=== PATIENT | female | born 1995 | race Caucasian/White ===

== ENCOUNTER 2017-01-20 12:50 | Inpatient (IN) | payer BC ==
[~2017-01-20] VITALS: Ht 180.3 cm; Wt 85.5 kg
[2017-01-20 13:46] LABS: BASO % 0.1 %; BASO ABS # 0.01 K/uL (0-0.2); COMPLETE YES; EOS % 1.6 %; HEMATOCRIT 40.8 % (37-47); IG% 0.1 %; LYMPH % 29.7 %; LYMPH ABS # 2.27 K/uL (1.2-3.4); MEAN CELL VOLUME 85.2 fL (80-100); MEAN CORPUSCULAR HEMOGLOBIN 29.4 pg (25-34); MEAN CORPUSCULAR HGB CONC 34.6 g/dl (32-36); MONO % 6.8 %; NEUT % 61.7 %; PLATELET COUNT 206 K/uL (130-400); RED BLOOD COUNT 4.79 M/uL (4.2-5.4); WHITE BLOOD COUNT 7.64 K/uL (4.8-10.8)
[2017-01-20 14:05] LABS: BUN/CREATININE RATIO 13.7 (10-20); CALCIUM 9.2 mg/dl (8.5-10.1); CREATININE 1.15 mg/dl (0.60-1.20); POTASSIUM 3.3 mmol/L (3.5-5.1)
[2017-01-20] MEDS ORDERED: GABA-113 PO (14:06)
[2017-01-20] MEDS ORDERED: ARIP30TA3 PO (14:06)
[2017-01-20] MEDS ORDERED: LTHSR/300 PO (14:06)
[2017-01-20] MEDS ORDERED: BUPRTAB51 PO (14:06)
[2017-01-20] MEDS ORDERED: CLON2TAB3 PO (14:06)
[2017-01-20] MEDS ORDERED: LISD60CA PO (14:06)
[2017-01-20] MEDS ORDERED: DESV100T PO (14:06)
[2017-01-20] MEDS ORDERED: LAMO200T38 PO (14:06)
[2017-01-20] MEDS ORDERED: ALPR2TAB2 PO (14:06)
[2017-01-20] MEDS ORDERED: APPL300T3 PO (14:08)
[2017-01-20] MEDS ORDERED: BIOT10TA2 PO (14:08)
[2017-01-20] MEDS ORDERED: OMEG10007 PO (14:08)
[2017-01-20] MEDS ORDERED: CHOLTAB11 PO (14:08)
[2017-01-20 14:15] LABS: THYROID STIMULATING HORMONE 1.36 uIu/ml (0.300-4.500)
[2017-01-20 14:30] LABS: URINE APPEARANCE CLEAR (CLEAR); URINE BILIRUBIN NEG (NEG); URINE COLOR YELLOW; URINE NITRITE NEG (NEG); URINE SPECIFIC GRAVITY 1.013 (1.000-1.030); UROBILINOGEN NEG (NEG)
[2017-01-20 14:35] LABS: MANUAL MICROSCOPIC REQUIRED? NO; REVIEW REQ? NO
[2017-01-20 14:46] LABS: BENZODIAZEPINE, URINE POS (NEG); COCAINE,URINE NEG (NEG); PHENCYCLIDINE, URINE NEG (NEG)
[2017-01-20] MEDS ORDERED: LORAZEPAM 0.5 MG TAB PO STA (14:48)
[2017-01-20] MEDS ORDERED: LORAZEPAM 0.5 MG TAB ONE (14:50)
--- NOTE | 2017-01-20 14:59 | EMERGENCY ROOM VISIT NOTE ---
History Report prepared by Romana: Cheli Ramirez Under the Supervision of: Dr. Ed Sutton D.O. First contact with patient: 12:59 Chief Complaint: MENTAL HEALTH EVALUATION Stated Complaint: DEPRESSION, ANXIETY, INSOMNIA, SEVERE ADHD History of Present Illness The patient is a 21 year old female who presents to the Emergency Room for a mental health evaluation. The patient has a history of depression and ADHD. She takes medications but thinks that they are not working anymore. She was doing well until about 2 weeks ago. She has started experiencing "manic episodes." The patient states that for the past month she has increased her ADHD medications because she felt that they were not strong enough. She had been having trouble concentrating and increased to 60 mg of Vyvanse. She also has insomnia and has been taking 2mg of Xanax and 4 mg of Klonopin to help her sleep. She states that this is not working. She is only sleeping about 2-3 hours a night and having panic attacks at night. The patient is going to class exhausted and unable to focus. She reports racing thoughts. She had two difficult exams this week. She states that over the weekend she became very overwhelmed and tried to kill herself. She tried to jump off of a building on campus. She states that she "chickened out" at the last minute. The patient denies any current SI. She has been having intermittent headache for the past 2 weeks. She rates her pain as a 9/10 in severity. Pt denies weakness or numbness. She is currently on her menses. She was sent to the ED by [facility] for further evaluation. Source of History: patient Onset: 2 weeks ago Position: other (mental health) Symptom Intensity: 9/10 Quality: other ("manic") Timing: worsening Associated Symptoms: + headache, No weakness, No numbness Note: Pt denies current SI. Review of Systems See HPI for pertinent positives & negatives. A total of 10 systems reviewed and were otherwise negative. Past Medical & Surgical Medical Problems: (1) Concussion (2) Depression Surgical Problems: (1) H/O rhinoplasty Family History FH: cancer FH: gallbladder disease Hypertension Social History Smoking Status: Never Smoker Smokeless Tobacco Use: No Alcohol Use: none Drug Use: none Marital Status: single Housing Status: lives with roommate Occupation Status: [employer] student Current/Historical Medications Scheduled Apple Cider Vinegar (Apple Cider Vinegar), 300 MG PO QPM Aripiprazole (Abilify), 30 MG PO DAILY Biotin (Biotin), 10 MG PO DAILY Bupropion (Wellbutrin-Xl), 300 MG PO DAILY Cholecalciferol (D-5000), 5,000 UNITS PO TID Clonazepam (Klonopin), 2 MG PO HS Desvenlafaxine Succinate Er (Pristiq), 200 MG PO QAM Fish Oil ([place]-3), 3 CAP PO DAILY Gabapentin (Neurontin), 900 MG PO TID Lamotrigine (Lamictal), 200 MG PO QPM Lisdexamfetamine Dimesylate (Vyvanse), 1 CAP PO DAILY Sully Carbonate (Sully Carbonate), 900 MG PO QPM Miscellaneous Medications Alprazolam (Xanax), 2 MG PO Allergies Coded Allergies: No Known Allergies (Unverified , 01/20/17) Physical Exam Vital Signs Date Time Temp Pulse Resp B/P (MAP) Pulse Ox O2 Delivery O2 Flow Rate FiO2 01/20/17 16:15 76 16 119/65 98 Room Air 01/20/17 14:21 82 16 113/65 99 Room Air 01/20/17 12:56 37.0 96 18 126/81 100 Room Air Physical Exam GENERAL: alert, sitting up in bed, well appearing, well nourished, no distress, non-toxic EYE EXAM: normal conjunctiva OROPHARYNX: no exudate, no erythema, lips, buccal mucosa, and tongue normal and mucous membranes are moist NECK: supple, no nuchal rigidity, no adenopathy, non-tender LUNGS: Clear to auscultation. Normal chest wall mechanics HEART: no murmurs, S1 normal and S2 normal ABDOMEN: abdomen soft, non-tender, normo-active bowel sounds, no masses, no rebound or guarding. BACK: Back is symmetrical on inspection and there is no deformity, no midline tenderness, no CVA tenderness. SKIN: no rashes and no bruising UPPER EXTREMITIES: upper extremities are grossly normal. LOWER EXTREMITIES: No pitting edema. NEURO EXAM: Normal sensorium, cranial nerves II-XII grossly intact, normal speech, no gross weakness of arms, no gross weakness of legs. PSYCH: Flat affect, depressed, denies SI, admits to recent attempt. Medical Decision & Procedures Laboratory Results 01/20/17 13:30 Red Blood Count 4.79, Mean Corpuscular Volume 85.2, Mean Corpuscular Hemoglobin 29.4, Mean Corpuscular Hemoglobin Concent 34.6, Mean Platelet Volume 9.0, Neutrophils (%) (Auto) 61.7, Lymphocytes (%) (Auto) 29.7, Monocytes (%) (Auto) 6.8, Eosinophils (%) (Auto) 1.6, Basophils (%) (Auto) 0.1, Neutrophils # (Auto) 4.71, Lymphocytes # (Auto) 2.27, Monocytes # (Auto) 0.52, Eosinophils # (Auto) 0.12, Basophils # (Auto) 0.01 01/20/17 13:30 Test 01/20/17 00:00 01/20/17 13:30 01/20/17 13:31 Urine Color YELLOW Urine Appearance CLEAR (CLEAR) Urine pH 8.0 (4.5-7.5) Urine Specific [place] 1.013 (1.000-1.030) Urine Protein NEG (NEG) Urine Glucose (UA) NEG (NEG) Urine Ketones NEG (NEG) Urine Occult Blood 2+ (NEG) Urine Nitrite NEG (NEG) Urine Bilirubin NEG (NEG) Urine Urobilinogen NEG (NEG) Urine Leukocyte Esterase TRACE (NEG) Urine WBC (Auto) 0 /hpf (0-5) Urine RBC (Auto) 0-4 /hpf (0-4) Urine Hyaline Casts (Auto) 0 /lpf (0-5) Urine Epithelial Cells (Auto) 5-10 /lpf (0-5) Urine Bacteria (Auto) NEG (NEG) Urine Opiates Screen NEG (NEG) Urine Methadone, Qualitative NEG (NEG) Urine Barbiturates NEG (NEG) Urine Phencyclidine (PCP) Level NEG (NEG) Ur Amphetamine/Methamphetamine NEG (NEG) MDMA (Ecstasy) Screen NEG (NEG) Urine Benzodiazepines Screen POS (NEG) Urine Cocaine Metabolite NEG (NEG) Urine Marijuana (THC) NEG (NEG) White Blood Count 7.64 K/uL (4.8-10.8) Red Blood Count 4.79 M/uL (4.2-5.4) Hemoglobin 14.1 g/dL (12.0-16.0) Hematocrit 40.8 % (37-47) Mean Corpuscular Volume 85.2 fL (80-100) Mean Corpuscular Hemoglobin 29.4 pg (25-34) Mean Corpuscular Hemoglobin Concent 34.6 g/dl (32-36) Platelet Count 206 K/uL (130-400) Mean Platelet Volume 9.0 fL (7.4-10.4) Neutrophils (%) (Auto) 61.7 % Lymphocytes (%) (Auto) 29.7 % Monocytes (%) (Auto) 6.8 % Eosinophils (%) (Auto) 1.6 % Basophils (%) (Auto) 0.1 % Neutrophils # (Auto) 4.71 K/uL (1.4-6.5) Lymphocytes # (Auto) 2.27 K/uL (1.2-3.4) Monocytes # (Auto) 0.52 K/uL (0.11-0.59) Eosinophils # (Auto) 0.12 K/uL (0-0.5) Basophils # (Auto) 0.01 K/uL (0-0.2) RDW Standard Deviation 38.5 fL (36.4-46.3) RDW Coefficient of Variation 12.5 % (11.5-14.5) Immature Granulocyte % (Auto) 0.1 % Immature Granulocyte # (Auto) 0.01 K/uL (0.00-0.02) Anion Gap 6.0 mmol/L (3-11) Est Creatinine Clear Calc Drug Dose 94.0 ml/min Estimated GFR () 78.2 Estimated GFR (Non- 67.5 BUN/Creatinine Ratio 13.7 (10-20) Calcium Level 9.2 mg/dl (8.5-10.1) Total Bilirubin 0.5 mg/dl (0.2-1) Direct Bilirubin 0.1 mg/dl (0-0.2) Aspartate Amino Transf (AST/SGOT) 21 U/L (15-37) Alanine Aminotransferase (ALT/SGPT) 40 U/L (12-78) Alkaline Phosphatase 91 U/L (45-117) Total Protein 7.6 gm/dl (6.4-8.2) Albumin 4.2 gm/dl (3.4-5.0) Thyroid Stimulating Hormone (TSH) 1.360 uIu/ml (0.300-4.500) Human Chorionic Gonadotropin, Qual NEG (NEG) Ethyl Alcohol mg/dL < 3.0 mg/dl (0-3) Bedside Glucose 99 mg/dl (70-90) Medications Administered Medications (Trade) Dose Ordered Sig/Amy Route Start Time Stop Time Status Last Admin Dose Admin Lorazepam (Ativan Tab) 0.5 mg NOW STAT PO 01/20/17 14:48 01/20/17 14:49 DC 01/20/17 14:48 0.5 MG ED Course ED COURSE: Vital signs were reviewed and showed normal vitals. The patients medical record was reviewed The above diagnostic studies were performed and reviewed. ED treatments and interventions as stated above. 1259: The patient was evaluated in room A5. A complete history and physical examination was performed. 1448: Lorazepam 0.5 mg PO 1600: The patient was accepted to [facility] for further management. Medical Decision Differential diagnosis: Etiologies such as mood disorder, infection, hypoglycemia, electrolyte abnormalities, cardiac sources, intracerebral event, toxicologic, neurologic, as well as others were entertained. Patient is a 21-year-old female who presents to ER for feeling manic and depressed. She states that she is not sleeping and has racing thoughts. She did attempt to kill herself several days ago. Patient notes her medications are not helping. She did try to increase them without success. CBC all BMP, LFTs, bilirubin and TSH was unremarkable. was negative. Alcohol negative. Sully was 0.6. UA was negative. Patient was evaluated by 3 S. and admitted for severe depression. Medication Reconcilliation Current Medication List: was personally reviewed by me Blood Pressure Screening Patient's blood pressure: Normal blood pressure Impression Primary Impression: Mood disorder Additional Impression: Suicide attempt Scribe Attestation The scribe's documentation has been prepared under my direction and personally reviewed by me in its entirety. I confirm that the note above accurately reflects all work, treatment, procedures, and medical decision making performed by me. Departure Information Dispostion [facility] Acute Care Patient Instructions My [facility] Problem Qualifiers
[2017-01-20 16:15] VITALS: O2SAT 98
[2017-01-20] MEDS ORDERED: LISD30CA4 PO (16:26)
[2017-01-20] MEDS ORDERED: SODIUM CHLORIDE 0.65% NA SOLN 45 ML (OCEAN) PRN (16:30)
[2017-01-20] MEDS ORDERED: ACETAMINOPHEN 325 MG TAB PO PRN (16:30)
[2017-01-20] MEDS ORDERED: ALUMINUM/MAGNESIUM SUSP 30 ML UDC PO PRN (16:30)
[2017-01-20] MEDS ORDERED: BISMUTH SUBSALICYLATE PER ML OMNICELL CHARGE PO PRN (16:30)
[2017-01-20] MEDS ORDERED: MAGNESIUM HYDROXIDE SUSP 30 ML UDC PO PRN (16:30)
[2017-01-20 16:52] LABS: PREG INTERNAL NEGATIVE QC NEG CLEAR BACKGROUND; PREG INTERNAL POSITIVE QC POS CONTROL LINE
[2017-01-20] MEDS: hydrOXYzine HCL 25 MG TAB PO PRN ×3 (18:30→23:38)
[2017-01-20 19:42] VITALS: BP 114/72; PULSE 97; TEMP 36.8; Ht 180.3 cm; Wt 85.5 kg
[2017-01-20] MEDS ORDERED: LITHIUM CARBONATE SR 300 MG TAB (LITHOBID) PO SCH (21:00)
[2017-01-20] MEDS: CLONAZEPAM 1 MG TAB PO SCH (21:49)
[2017-01-20] MEDS: GABAPENTIN 300 MG CAP PO SCH (21:51)
[2017-01-21 07:03] VITALS: BP_SYST 94; BP_SYST 97; BP_DIAS 57; BP_DIAS 60; PULSE 67; PULSE 85; TEMP 36.9
[2017-01-21] MEDS: BuPROPion XL 300 MG TABCR PO SCH (09:48)
[2017-01-21] MEDS: ARIPIprazole TAB 15 MG TAB PO SCH (09:48)
[2017-01-21] MEDS: GABAPENTIN 300 MG CAP PO SCH ×3 (09:48→21:27)
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
--- NOTE | 2017-01-21 15:51 | Medical Student: BHU Only ---
Psychiatric Evaluation Date of Service: Jan 21, 2017. IDENTIFYING DATA: Elsa Lockett is a 21-year-old female [employer] [facility] Student who was admitted to the [facility] yesterday following presentation to the ED to have her meds increased. Elsa was admitted to the [facility] on a 201 commitment. CHIEF COMPLAINT: "I need my ADHD medication increased". HISTORY OF PRESENT ILLNESS: Following a concussion in 2013, Elsa developed depression, ADHD, anxiety with insomnia, and borderline personalty disorder which have been managed primarily by a psychiatrist in [place] but also by student health both at her previous institution ([employer]). She feels that her ADHD and anxiety with insomnia have worsened since transferring to [employer] this semester, and she self- increased her Vyvanse to 60mg daily and has increased the Xanax and Klonopin she is taking. Recently her anxiety has been to the point that she climbed to the top of a building with the intent to jump and end her life, but she "chickened out". When she tried to get outpatient psychiatric care and could not find anyone, she reported to the ED. She reports that she "fully believes in medications" and her primary concern is increasing her ADHD medication to be able to concentrate better, even if that comes at the expense of her not sleeping at all. She feels that the medication is effective for 12 hours, from 8 am to 8 pm and denies that the medication is currently keeping her awake. She also notes consuming a "normal" amount of caffeine, which she notes is 2 cups of coffee and one 200mg caffeine pill daily in addition to her Vyvanse. She has also been increasing her Xanax and Klonipin but has still only been sleeping 2-3 hours per night. She notes she has no support system here and only speaks to her parents every 2 weeks, who are not understanding of mental health issues. She is only involved in one club, which is "academic not social" and does not know what clubs she could join otherwise. She does exercise daily. Risk of violence to self within the last 6 months: Yes: walked to top of building to jump off but "chickened out" Risk of violence to others within the last 6 months: No CURRENT MEDICATIONS: See chart. Many PAST PSYCHIATRIC HISTORY: Current outpatient mental health treatment: Yes, in [place] remotely Prior outpatient mental health treatment: Yes Prior psychiatric hospitalizations: No Prior medication trials: Many Prior suicide attempts: 1- walking to top of building to jump Access to weapons: No PAST MEDICAL HISTORY: Current primary care practitioner is None- [facility]. medical history: Concussion in 2014, with ensuing mental health diagnoses ALLERGIES: NKDA FAMILY HISTORY: Mental Health: None Substance Abuse: None Suicide: No SUBSTANCE USE HISTORY: Tobacco use hx: None Caffeine use hx: 2 cups of coffee plus 1 200mg caffeine pill per day Denies all other drugs OBJECTIVE: MENTAL STATUS EXAM: Appearance is that of a disheveled appearing college student who appears to be falling asleep at time. Eye contact is okay Motor behavior is slowed. Speech: quiet, normal rate. Affect: flat Mood: depressed. Thought process: Fixated on ADHD med increase. Values concentration over sleep. Not logical regarding value of alternative treatments besides medications. Thought content: Fixated on medications and possible meds being "taken from me" while here. Perception: Feels like care is being withdrawn if meds are held. Cognition: Intelligence appears to be average. Insight is estimated to be poor. Judgment is estimated to be poor. RISK ASSESSMENT: * Risk factors (select all that apply): Single, multiple mental health diagnoses including Bipolar II, Depression, ADHD and Borderline Personality Disorder, far away from home, no support system. * Protective factors (select all that apply): None ASSESSMENT AND PLAN: Elsa Lockett is a 21 yo female with multiple mental health diagnoses and a clouded picture as to which diagnoses are most salient. She is currently taking many different psychiatric medications in addition to high amounts of caffeine and appears to be treating side effects with new medications. She is a "strong believer in medications" and wants her ADHD medications and benzos increased. She is currently discounting the value of counseling or other treatment modalities besides medications and does not understand the interaction between these medications and the issue with taking multiple medications which are interacting with each other. An attempt will be made to reduce and simplify her medications, which was explained to her. Individual assessment and plan are as follows: 1. Major Depressive Disorder, severe, recurrent: D/C Pristiq but continue Wellbutrin 300mg XL daily. Will work to find outpatient psychiatrist and counselor in [place] [employer]. Will work on coping mechanisms and building social support system here. 2. ADHD: Will hold all ADHD meds for now and reassess once medications and caffeine are out out of her system. Will need to reduce caffeine intake and sign treatment contract for ADHD medications so as to not self-increase dosing. 3. Anxiety with Insomnia: Secondary to PTSD related to article event at [employer]. Will stop Xanax at this time and will maintain Klonipin at 2mg with plan to taper. Will use Vistaril prn. 4. Borderline Personality Disorder: Will seek outpatient records from psychiatrist in [place]. 5. Bipolar II: Patient's history and lack of improvement on lithium point away from this diagnosis at this time. Will D/C lithium but maintain 30mg Abilify and Lamictal at 250mg at this time. 6. Disposition. LOS 2-4 days. Needs to reduce anxiety and improve sleep prior to discharge planning. Safe living situation must be identified. Need to involve parents in discharge planning.
[2017-01-21] MEDS: hydrOXYzine HCL 25 MG TAB PO PRN ×2 (16:41→21:30)
[2017-01-21] MEDS: CLONAZEPAM 1 MG TAB PO SCH (21:13)
[2017-01-22] MEDS: hydrOXYzine HCL 25 MG TAB PO PRN ×4 (00:07→23:30)
[2017-01-22 06:59] VITALS: BP_SYST 94; BP_SYST 97; BP_DIAS 59; BP_DIAS 63; PULSE 67; PULSE 80; TEMP 36.8
[2017-01-22] MEDS: BuPROPion XL 300 MG TABCR PO SCH (08:55)
[2017-01-22] MEDS: GABAPENTIN 300 MG CAP PO SCH ×3 (08:55→20:28)
[2017-01-22] MEDS: ARIPIprazole TAB 15 MG TAB PO SCH (08:55)
--- NOTE | 2017-01-22 11:16 | Psychiatric Progress Notes ---
Progress Note Date of Service Jan 22, 2017. Interval History 21-year-old [employer] student admitted to our unit with worsening depression, suicidality. She has changed her medicines by herself to include increasing her stimulant and her benzodiazepines. She is on quite an array of medications and it's easy to see how each medicine may have been added individually but at this point she is experiencing polypharmacy and may be medicating side effects from one medication with another. I do not get convincing evidence that she has bipolar disorder as her reported manic symptoms seem more in the context of anxiety. She indicates that she's been on lithium for 2 months and there has been absolutely no effect and so we will discontinue this. She has been helped by Lamictal in the past when it was at higher doses and so we will increase his to 250 mg. She is on Neurontin for anxiety and although she says that it has not helped, I believe this in place for now, not wanting to take away anything that may happen even the most subtle of benefit. She has been on super therapeutic doses of Pristiq for 3 years and has felt no benefit and so we will discontinue this. She has been on Wellbutrin XL 300 mg for the last 3 years and we will continue this in view of her depression. She has been on Abilify 30 mg for the last 3 months she feels that this has been helpful to her manic episodes so we will continue this for now. I would consider a trial of prazosin however today her blood pressure is too low to considerably monitor this. We will hold all stimulants in view of sleeplessness agitation and poor concentration. In terms of her benzodiazepines, I feel it is too risky to continue this interview of the fact that she was adjusting her own doses. We will discontinue Xanax altogether but for now we will continue Klonopin 2 mg at bedtime to aid in sleep with an eye to tapering this to discontinuation. We will get her outpatient psychiatrist's records as soon as possible. She will need psychiatric outpatient care which was a barrier to her receiving medication adjustments prior to admission. At this time, the patient requires inpatient mental health treatment due to the severity of her condition and the risk for self-harm if discharged. Chief Complaint "I'm tired.". Subjective Patient was seen & assessed interval progress reviewed with Treatment Team. The patient is in bed, saying she is tired without her vyvanse. Her mood is "very poor", worrying about her meds and sleep, which she said she got none of last night. She had one panic attack yesterday, but none so far today. . We discuss sleep meds: Remeron and seroquel = weight gain. melatonin 10 mg = didn 't work. Lunesta = worked. We review the information received from Dr. Garcia and confirmed that she had been without vyvanse from March until she requested to go back on it in November, and so he gave her 3 months worth of 30 mg. pills. She denies SI. Review of Systems Constitutional: + fatigue ENT: No hearing loss, No unusual epistaxis, No nasal symptoms, No sore throat, No tinnitus, No dental problems, No trouble swallowing, No problem reported Respiratory: No cough, No sputum, No wheezing, No shortness of breath, No dyspnea on exertion, No dyspnea at rest, No hemoptysis, No problem reported Cardiovascular: No chest pain, No orthopnea, No PND, No edema, No claudication , No palpitations, No problem reported Abdomen: No pain, No nausea, No vomiting, No diarrhea, No constipation, No GI bleeding, No problem reported Musculoskeletal: No joint pain, No muscle pain, No swelling, No calf pain, No problem reported Neurologic: No memory loss, No paralysis, No weakness, No numbness/tingling, No vertigo, No balance problems, No problem reported Psychiatric: + depression symptoms, + anxiety, + insomnia Sleep Information Total Hours of Sleep: 5.25 Meal Information Percent of Breakfast Consumed: 100 Percent of Lunch Consumed: 100 Percent of Dinner Consumed: 100 Mental Status Exam During interview pt is: alert and oriented, cooperative Appearance: appropriately dressed, disheveled Eye contact is: fair Motor behavior is: no abnormal motor movements, psychomotor retardation Speech: normal in rate, rhythm & volume Affect: flat Mood is: depressed, anxious Thought process: goal directed Thought content: paranoid Suicidal thought are: denied Homicidal thoughts are: denied Hallucinations: denies auditory, denies visual Cognition: memory grossly intact, attention grossly intact, language grossly intact Intelligence estimated to be: average Insight: impaired Judgement: impaired Summary of Past History 01/[address] Garcia's records. Last seen on 11/05/16 prior to moving to [facility]. At that time her mood was improving on Abilify 15 mg. but room to improve and so he increased it to 30 mg. She requested to go back on vyvanse 30 mg. which she had been off of since March 2016 and so he gave herf 3 scripts for Vyvanse 30 mg. #30. Diagnoses include [place], Bipolar disorder other, panic disorder without agoraphobia and insomnia. Meds were Xanax 2 mg. 1/2-1 pill TID prn, vyvanse 30 mg. daily, Abilify 30 mg. daily, Wellbutrin XL 450 mg. daily, gabapentin 900 mg. TID. Impression Feeling tired off of vyvanse. Encouraged not to stay in bed but to push herself. It may take some time for the meds to leave her system in a way that we will be able to see what she looks like without the see saw of stimulants and BZD's, but it seems likely that they were impacting her current condition, despite her protestations that they weren't. Sleep problems are chronic, with no perceived sleep last night. Will order Lunesta 1 mg. HS since she says that this was effective in the past. Plan (1) Major depressive disorder, recurrent severe without psychotic features 01/21 -Current psychiatrist has diagnosed her with bipolar 2 however I do not find sufficient evidence to agree with this. -Will DC lithium in view of no effect over the course of months - Will continue Lamictal but increase to 250 mg as she said her mood was more stable on higher doses -We'll DC Pristiq in view of the fact she has been on it for 3 years at super therapeutic doses without benefit We will continue Wellbutrin XL 300 mg daily for now in view of reports of depression - We will also continue Abilify 30 mg daily for now as she feels it has been helpful - We will hold stimulants in view of her impaired sleep and increased anxiety - We will discontinue Xanax but continue Klonopin 2 mg HS for sleep while we consider her ability to trial prazosin - Every 15 minute checks for safety - Encourage participation in group and individual counseling - Obtain outpatient records from current providers - The patient will need psychiatric aftercare - Family meeting if indicated - Communicate with the university as needed 01/22 - Retrial Lunesta 1 mg. HS for sleep - Continue current meds for now. - FLP and FBS for monitoring on atypicals (2) ADHD 01/21 - Will hold ADHD meds for now in view of impaired sleep and increased anxiety 01/22 - Continue off of stimulants (3) Borderline personality disorder 01/21 - Will need to obtain outpatient records as to this diagnosis - Will need to be consistent in our interactions (4) PTSD (post-traumatic stress disorder) - status post events occurring at [facility] last year - Consider trial prazosin if SBP improves - Will continue Klonopin 2 mg at bedtime to promote sleep for now but would like to see her tapered off benzodiazepines - Continue when necessary Vistaril Has been reviewed with Dr. Rosa Maria Fisher Discharge / Aftercare Planning Primary Care Physician: Name: None Therapist: Name: Amada Malik [facility] Administrator: Name: None Visit Code E&M Code: 54648 Inventory Assets Strengths: Intelligence, willingness to engage in treatment Needs: To take medications only as prescribed Risk Factors Assessment : Yes /single/: Yes Higher / Fall in social status: Yes Health problems: No Mental Health Diagnoses: Yes Substance use disorders: No Previous attempt: No Previous psychiatric stay: Yes Hopelessness: No Smoker: No Protective Factors Assessment : No Responsible for young children: No Employed: No Supportive family: Yes Data Vital Signs Last 24 Hrs: Date Time Temp Pulse Resp B/P (MAP) Pulse Ox O2 Delivery O2 Flow Rate FiO2 01/22/17 06:59 36.8 67 16 94/59 80 97/63 Meds Administered Last 24 Hrs: Meds Administered (Past 24Hrs) Medications (Trade) Dose Ordered Sig/Amy Route Start Time Stop Time Status Last Admin Dose Admin Lorazepam (Ativan Tab) 0.5 mg NOW STAT PO 01/20/17 14:48 01/20/17 14:49 DC 01/20/17 14:48 0.5 MG Hydroxyzine HCl (Vistaril Tab) 50 mg HSZ PRN PO 01/20/17 16:30 02/19/17 16:29 01/22/17 00:07 50 MG Hydroxyzine HCl (Vistaril Tab) 25 mg Q4H PRN PO 01/20/17 16:30 02/19/17 16:29 01/21/17 16:41 25 MG Aripiprazole (Abilify Tab) 30 mg DAILY PO 01/21/17 09:00 02/20/17 08:59 01/22/17 08:55 30 MG Bupropion HCl (Wellbutrin-Xl Tab) 300 mg DAILY PO 01/21/17 09:00 02/20/17 08:59 01/22/17 08:55 300 MG Clonazepam (Klonopin Tab) 2 mg HS PO 01/20/17 21:00 02/19/17 20:59 01/21/17 21:13 2 MG Gabapentin (Neurontin Cap) 900 mg TID PO 01/20/17 21:00 02/19/17 20:59 01/22/17 08:55 900 MG Lamotrigine (Lamictal Tab) 200 mg QPM PO 01/20/17 21:00 01/21/17 12:36 DC 01/20/17 21:54 200 MG [place] Carbonate (Lithobid Tab) 900 mg HS PO 01/20/17 21:00 01/21/17 12:36 DC 01/20/17 21:50 900 MG Lamotrigine (Lamictal Tab) 250 mg HS PO 01/21/17 22:00 02/20/17 21:59 01/21/17 21:27 250 MG Lab Results Last 24 Hrs: 01/20/17 13:30 Red Blood Count 4.79, Mean Corpuscular Volume 85.2, Mean Corpuscular Hemoglobin 29.4, Mean Corpuscular Hemoglobin Concent 34.6, Mean Platelet Volume 9.0, Neutrophils (%) (Auto) 61.7, Lymphocytes (%) (Auto) 29.7, Monocytes (%) (Auto) 6.8, Eosinophils (%) (Auto) 1.6, Basophils (%) (Auto) 0.1, Neutrophils # (Auto) 4.71, Lymphocytes # (Auto) 2.27, Monocytes # (Auto) 0.52, Eosinophils # (Auto) 0.12, Basophils # (Auto) 0.01 01/20/17 13:30 Test 01/20/17 00:00 01/20/17 13:30 01/20/17 13:31 01/20/17 16:43 Urine Color YELLOW Urine Appearance CLEAR (CLEAR) Urine pH 8.0 (4.5-7.5) Urine Specific Joshua 1.013 (1.000-1.030) Urine Protein NEG (NEG) Urine Glucose (UA) NEG (NEG) Urine Ketones NEG (NEG) Urine Occult Blood 2+ (NEG) Urine Nitrite NEG (NEG) Urine Bilirubin NEG (NEG) Urine Urobilinogen NEG (NEG) Urine Leukocyte Esterase TRACE (NEG) Urine WBC (Auto) 0 /hpf (0-5) Urine RBC (Auto) 0-4 /hpf (0-4) Urine Hyaline Casts (Auto) 0 /lpf (0-5) Urine Epithelial Cells (Auto) 5-10 /lpf (0-5) Urine Bacteria (Auto) NEG (NEG) Urine Opiates Screen NEG (NEG) Urine Methadone, Qualitative NEG (NEG) Urine Barbiturates NEG (NEG) Urine Phencyclidine (PCP) Level NEG (NEG) Ur Amphetamine/Methamphetamine NEG (NEG) MDMA (Ecstasy) Screen NEG (NEG) Urine Benzodiazepines Screen POS (NEG) Urine Cocaine Metabolite NEG (NEG) Urine Marijuana (THC) NEG (NEG) White Blood Count 7.64 K/uL (4.8-10.8) Red Blood Count 4.79 M/uL (4.2-5.4) Hemoglobin 14.1 g/dL (12.0-16.0) Hematocrit 40.8 % (37-47) Mean Corpuscular Volume 85.2 fL (80-100) Mean Corpuscular Hemoglobin 29.4 pg (25-34) Mean Corpuscular Hemoglobin Concent 34.6 g/dl (32-36) Platelet Count 206 K/uL (130-400) Mean Platelet Volume 9.0 fL (7.4-10.4) Neutrophils (%) (Auto) 61.7 % Lymphocytes (%) (Auto) 29.7 % Monocytes (%) (Auto) 6.8 % Eosinophils (%) (Auto) 1.6 % Basophils (%) (Auto) 0.1 % Neutrophils # (Auto) 4.71 K/uL (1.4-6.5) Lymphocytes # (Auto) 2.27 K/uL (1.2-3.4) Monocytes # (Auto) 0.52 K/uL (0.11-0.59) Eosinophils # (Auto) 0.12 K/uL (0-0.5) Basophils # (Auto) 0.01 K/uL (0-0.2) RDW Standard Deviation 38.5 fL (36.4-46.3) RDW Coefficient of Variation 12.5 % (11.5-14.5) Immature Granulocyte % (Auto) 0.1 % Immature Granulocyte # (Auto) 0.01 K/uL (0.00-0.02) Anion Gap 6.0 mmol/L (3-11) Est Creatinine Clear Calc Drug Dose 94.0 ml/min Estimated GFR () 78.2 Estimated GFR (Non- 67.5 BUN/Creatinine Ratio 13.7 (10-20) Calcium Level 9.2 mg/dl (8.5-10.1) Total Bilirubin 0.5 mg/dl (0.2-1) Direct Bilirubin 0.1 mg/dl (0-0.2) Aspartate Amino Transf (AST/SGOT) 21 U/L (15-37) Alanine Aminotransferase (ALT/SGPT) 40 U/L (12-78) Alkaline Phosphatase 91 U/L (45-117) Total Protein 7.6 gm/dl (6.4-8.2) Albumin 4.2 gm/dl (3.4-5.0) Thyroid Stimulating Hormone (TSH) 1.360 uIu/ml (0.300-4.500) Human Chorionic Gonadotropin, Qual NEG (NEG) Ethyl Alcohol mg/dL < 3.0 mg/dl (0-3) Bedside Glucose 99 mg/dl (70-90) [place] Level 0.6 mMOL/L (0.6-1.2)
[2017-01-22] MEDS: IBUPROFEN 800 MG TAB PO PRN (14:40)
[2017-01-22] MEDS: CLONAZEPAM 1 MG TAB PO SCH (20:28)
[2017-01-22] MEDS ORDERED: ESZOPICLONE 1 MG TAB PO SCH (22:00)
[2017-01-23] MEDS: IBUPROFEN 800 MG TAB PO PRN ×2 (06:00→13:19)
[2017-01-23 07:02] VITALS: BP_SYST 95; BP_SYST 99; BP_DIAS 60; BP_DIAS 62; PULSE 62; PULSE 79; TEMP 36.5
[2017-01-23] MEDS: ARIPIprazole TAB 15 MG TAB PO SCH (08:44)
[2017-01-23] MEDS: BuPROPion XL 300 MG TABCR PO SCH (08:44)
[2017-01-23] MEDS: GABAPENTIN 300 MG CAP PO SCH (08:45)
[2017-01-23 09:32] LABS: POTASSIUM 4.3 mmol/L (3.5-5.1)
[2017-01-23 09:38] LABS: CHOLESTEROL/HDL RATIO 2.7
[2017-01-23] MEDS: AMPHETAMINE ASP/SULF/DEXTRAMPH ER 20 MG CAP PO SCH (11:30)
[2017-01-23] MEDS: GABAPENTIN 600 MG TAB PO SCH ×2 (14:00→21:24)
[2017-01-23] MEDS: SUMATRIPTAN SUCCINATE 25 MG TAB PO PRN ×2 (15:10→17:30)
--- NOTE | 2017-01-23 15:48 | Psychiatric Progress Notes ---
Progress Note Date of Service Jan 23, 2017. Interval History On admit: 21-year-old [employer] [employer] [facility] student admitted to our unit with worsening depression, suicidality. She has changed her medicines by herself to include increasing her stimulant and her benzodiazepines. She is on quite an array of medications and it's easy to see how each medicine may have been added individually but at this point she is experiencing polypharmacy and may be medicating side effects from one medication with another. She denied manic symptoms. [place] was discontinued. She has been helped by Lamictal in the past when it was at higher doses and so we will increase his to 250 mg. Pristiq was also discontinued and Vyvanse was held on admission (it is also non- formulary). Benzodiazepine taper was also initiated by [employer]ENCH PROFESSOR given hx of self- medication/overuse. Chief Complaint "I want the strongest of everything for my anxiety, my attention, my sleep problems and my headache". Subjective Patient was seen & assessed interval progress reviewed with Nursing. Did not sleep well, feels worse this am following Lunesta and declines to continue it. Also required prn Vistaril with no effect. She did sign a 72 hour notice to withdrawal from treatment as "I was upset". Discussed her med concerns at length during appt and she was agreeable to rescind. Review of Systems Psych: denies symptoms other than stated above Constitutional: denied Cardiovascular: denied GI: denied Neurologic: migraine Remainder of 10 body systems also reviewed and denied other than noted above. Sleep Information Total Hours of Sleep: 5.50 Meal Information Percent of Breakfast Consumed: 100 Percent of Lunch Consumed: 100 Percent of Dinner Consumed: 100 Mental Status Exam During interview pt is: alert and oriented, cooperative Appearance: appropriately dressed, disheveled Eye contact is: fair Motor behavior is: no abnormal motor movements Speech: normal in rate, rhythm & volume Affect: flat Mood is: depressed, anxious Thought process: goal directed Thought content: reality based without delusions Suicidal thought are: denied Homicidal thoughts are: denied Hallucinations: denies auditory, denies visual Cognition: memory grossly intact, attention grossly intact, language grossly intact Intelligence estimated to be: average Insight: impaired Judgement: impaired Summary of Past History 01/[address] Garcia's records. Last seen on 11/05/16 prior to moving to [facility]. At that time her mood was improving on Abilify 15 mg. but room to improve and so he increased it to 30 mg. She requested to go back on vyvanse 30 mg. which she had been off of since March 2016 and so he gave herf 3 scripts for Vyvanse 30 mg. #30. Diagnoses include [place], Bipolar disorder other, panic disorder without agoraphobia and insomnia. Meds were Xanax 2 mg. 1/2-1 pill TID prn, vyvanse 30 mg. daily, Abilify 30 mg. daily, Wellbutrin XL 450 mg. daily, gabapentin 900 mg. TID. Impression overall functioning appears to continue to worsen given limited concentration and ability to redirect her anxiety. She is experiencing migraine from combo of stimulant and caffeine withdrawal. Patient reports worsening of inattentive symptoms following her concussion and functioned best on high dose of Wellbutrin in combo with stimulant. She admits she shouldn't be taking medications other than prescribed. Impulsivity seems consistent with personality structure and ADHD as no evidence of terri. Patient has tendency to overreport many symptoms and remains unrealistic about medication regimen and need for therapy. Plan (1) Major depressive disorder, recurrent severe without psychotic features 01/21 -Current psychiatrist has diagnosed her with bipolar 2 however I do not find sufficient evidence to agree with this. -Will DC lithium in view of no effect over the course of months - Will continue Lamictal but increase to 250 mg as she said her mood was more stable on higher doses -We'll DC Pristiq in view of the fact she has been on it for 3 years at super therapeutic doses without benefit We will continue Wellbutrin XL 300 mg daily for now in view of reports of depression - We will also continue Abilify 30 mg daily for now as she feels it has been helpful - We will hold stimulants in view of her impaired sleep and increased anxiety - We will discontinue Xanax but continue Klonopin 2 mg HS for sleep while we consider her ability to trial prazosin - Every 15 minute checks for safety - Encourage participation in group and individual counseling - Obtain outpatient records from current providers - The patient will need psychiatric aftercare - Family meeting if indicated - Communicate with the university as needed 01/22 - Retrial Lunesta 1 mg. HS for sleep - Continue current meds for now. - FLP and FBS for monitoring on atypicals 01/23 --d/c Vignesh, agrees to retrial of trazodone (previously effective at 250 mg). She is agreeable to decrease polypharmacy by tapering down on Neurontin and continuing benzo taper. (2) ADHD 01/21 - Will hold ADHD meds for now in view of impaired sleep and increased anxiety 01/22 - Continue off of stimulants 01/23--Vyvanse 60-70 mg is likely an appropriate dose given her college schedule and hx of concussion. Sleep issues more likely to use of caffeine which she is currently minimizing. Reviewed that Wellbutrin is also helpful but I wouldn't suggest doses over 300 mg given risk of seizure. Reviewed that she may be seeking to function at a hypomanic state. (3) Borderline personality disorder 01/21 - Will need to obtain outpatient records as to this diagnosis - Will need to be consistent in our interactions (4) PTSD (post-traumatic stress disorder) - status post events occurring at [place] last year - Consider trial prazosin if SBP improves - Will continue Klonopin 2 mg at bedtime to promote sleep for now but would like to see her tapered off benzodiazepines - Continue when necessary Vistaril 01/23--still minimizing need for outpatient therapy. Buspar trial prn anxiety. Discharge / Aftercare Planning Primary Care Physician: Name: None Psychiatrist: Name: [facility] Appointment Notes: referral made Therapist: Name: [facility] Nurse Practitioner: Name: None Visit Code E&M Code: 99541 Inventory Assets Strengths: Intelligence, willingness to engage in treatment Needs: To take medications only as prescribed Risk Factors Assessment : Yes /single/: Yes Higher / Fall in social status: Yes Health problems: No Mental Health Diagnoses: Yes Substance use disorders: No Previous attempt: No Previous psychiatric stay: Yes Hopelessness: No Smoker: No Protective Factors Assessment : No Responsible for young children: No Employed: No Supportive family: Yes Data Vital Signs Last 24 Hrs: Date Time Temp Pulse Resp B/P (MAP) Pulse Ox O2 Delivery O2 Flow Rate FiO2 01/23/17 07:02 36.5 62 16 95/60 79 99/62 Meds Administered Last 24 Hrs: Meds Administered (Past 24Hrs) Medications (Trade) Dose Ordered Sig/Amy Route Start Time Stop Time Status Last Admin Dose Admin Lamotrigine (Lamictal Tab) 250 mg HS PO 01/21/17 22:00 02/20/17 21:59 01/22/17 20:28 250 MG Eszopiclone (Lunesta Tab) 1 mg HSZ PO 01/22/17 22:00 01/23/17 11:36 DC 01/22/17 21:19 1 MG Ibuprofen (Motrin Tab) 800 mg TID PRN PO 01/22/17 14:15 02/21/17 14:14 01/23/17 13:19 800 MG Gabapentin (Neurontin Tab) 600 mg TID PO 01/23/17 14:00 02/19/17 20:59 01/23/17 14:00 600 MG Sumatriptan Succinate (Imitrex Tab) 25 mg ONE PRN PO 01/23/17 11:30 02/22/17 11:29 01/23/17 15:10 25 MG Lab Results Last 24 Hrs: Last 24 Hours Test 01/23/17 08:30 Potassium Level 4.3 mmol/L Fasting Glucose 89 mg/dl Triglycerides Level 68 mg/dl Cholesterol Level 125 mg/dl HDL Cholesterol 47 mg/dl LDL Cholesterol, Calculated 64 mg/dl VLDL Cholesterol, Calculated 14 mg/dl Cholesterol/HDL Ratio 2.7
[2017-01-23] MEDS: PROMETHAZINE HCL 25 MG TAB PO PRN (19:32)
[2017-01-23] MEDS: CLONAZEPAM 1 MG TAB PO SCH (21:27)
[2017-01-23] MEDS ORDERED: TRAZODONE HCL 100 MG TAB PO SCH (22:00)
[2017-01-23] MEDS: TRAZODONE HCL 100 MG TAB PO PRN (22:38)
[2017-01-23 23:02] LABS: HYDROXYETHYLFLURAZEPAM CONF NEGATIVE NG/ML (CUTOFF=50); HYDROXYMIDAZOLAM NEGATIVE NG/ML (CUTOFF=50); HYDROXYTRIAZOLAM CONF NEGATIVE NG/ML (CUTOFF=50); TEMAZEPAM CONF NEGATIVE NG/ML (CUTOFF=50)
[2017-01-24] MEDS ORDERED: NURSING VERBAL MED ORDER ONE (01:00)
[2017-01-24] MEDS: CHLORPROMAZINE HCL 25 MG TAB PO SCH ×2 (01:11→01:55)
[2017-01-24] MEDS: GABAPENTIN 600 MG TAB PO SCH (10:26)
[2017-01-24] MEDS: ARIPIprazole TAB 15 MG TAB PO SCH (10:26)
[2017-01-24] MEDS: BuPROPion XL 300 MG TABCR PO SCH (10:26)
[2017-01-24] MEDS: AMPHETAMINE ASP/SULF/DEXTRAMPH ER 20 MG CAP PO SCH (10:29)
[2017-01-24] MEDS ORDERED: VENLAFAXINE HCL XR 37.5 MG CAPXR PO ONE (12:15)
--- NOTE | 2017-01-24 12:25 | Psychiatric Progress Notes ---
Progress Note Date of Service Jan 24, 2017. Interval History On admit: 21-year-old [facility] student admitted to our unit with worsening depression, suicidality. She has changed her medicines by herself to include increasing her stimulant and her benzodiazepines. She is on quite an array of medications and it's easy to see how each medicine may have been added individually but at this point she is experiencing polypharmacy and may be medicating side effects from one medication with another. She denied manic symptoms. [place] was discontinued. She has been helped by Lamictal in the past when it was at higher doses and so we will increase his to 250 mg. Pristiq was also discontinued and Vyvanse was held on admission (it is also non- formulary). Benzodiazepine taper was also initiated by WRESTLING COACH given hx of self- medication/overuse. Chief Complaint "tired this am but physically feeling better". Subjective Patient was seen & assessed interval progress reviewed with Nursing. Patient had benefit yesterday from prn Imitrex for migraine and later phenergan for nausea. She is now unsure how much Pristiq she was actually prescribed vs taking prior to admission and we discussed the concept of discontinuation syndrome. She has done well with Effexor reportedly in the past. She required multiple prns for sleep despite not taking Adderall XR and is now a bit groggy this am. Was noted to be eating breakfast with significant psychomotor retardation. Review of Systems Psych: denies symptoms other than stated above Constitutional: fatigue Cardiovascular: denied GI: denied Neurologic: specifically states headache is better Remainder of 10 body systems also reviewed and denied other than noted above. Sleep Information Total Hours of Sleep: 5.25 Meal Information Percent of Breakfast Consumed: 100 Percent of Lunch Consumed: 100 Percent of Dinner Consumed: 100 Mental Status Exam During interview pt is: alert and oriented, cooperative Appearance: appropriately dressed, disheveled Eye contact is: fair Motor behavior is: no abnormal motor movements Speech: normal in rate, rhythm & volume Affect: flat Mood is: depressed, anxious Thought process: goal directed Thought content: reality based without delusions Suicidal thought are: denied Homicidal thoughts are: denied Hallucinations: denies auditory, denies visual Cognition: memory grossly intact, attention grossly intact, language grossly intact Intelligence estimated to be: average Insight: impaired Judgement: impaired Summary of Past History 01/[address] Garcia's records. Last seen on 11/05/16 prior to moving to [facility]. At that time her mood was improving on Abilify 15 mg. but room to improve and so he increased it to 30 mg. She requested to go back on vyvanse 30 mg. which she had been off of since March 2016 and so he gave herf 3 scripts for Vyvanse 30 mg. #30. Diagnoses include [place], Bipolar disorder other, panic disorder without agoraphobia and insomnia. Meds were Xanax 2 mg. 1/2-1 pill TID prn, vyvanse 30 mg. daily, Abilify 30 mg. daily, Wellbutrin XL 450 mg. daily, gabapentin 900 mg. TID. Impression She is experiencing migraine from combo of stimulant and caffeine withdrawal. Patient reports worsening of inattentive symptoms following her concussion and functioned best on high dose of Wellbutrin in combo with stimulant. She admits she shouldn't be taking medications other than prescribed. Impulsivity seems consistent with personality structure and ADHD as no evidence of terri. Patient has tendency to over-report many symptoms and remains unrealistic about medication regimen and need for therapy. functioning minimally improved today, appears to be experiencing some discontinuation syndrome from SNRI. Plan (1) Major depressive disorder, recurrent severe without psychotic features 01/21 -Current psychiatrist has diagnosed her with bipolar 2 however I do not find sufficient evidence to agree with this. -Will DC lithium in view of no effect over the course of months - Will continue Lamictal but increase to 250 mg as she said her mood was more stable on higher doses -We'll DC Pristiq in view of the fact she has been on it for 3 years at super therapeutic doses without benefit We will continue Wellbutrin XL 300 mg daily for now in view of reports of depression - We will also continue Abilify 30 mg daily for now as she feels it has been helpful - We will hold stimulants in view of her impaired sleep and increased anxiety - We will discontinue Xanax but continue Klonopin 2 mg HS for sleep while we consider her ability to trial prazosin - Every 15 minute checks for safety - Encourage participation in group and individual counseling - Obtain outpatient records from current providers - The patient will need psychiatric aftercare - Family meeting if indicated - Communicate with the university as needed 01/22 - Retrial Lunesta 1 mg. HS for sleep - Continue current meds for now. - FLP and FBS for monitoring on atypicals 01/23 --d/c Lunesta, agrees to retrial of trazodone (previously effective at 250 mg). She is agreeable to decrease polypharmacy by tapering down on Neurontin and continuing benzo taper. 01/24 --last dose of Klonopin 1 mg tonight, primary team to determine need for further taper tomorrow. Will provide 1 time dose of mid range dose of Effexor XR 112.5 mg, will defer to primary team re: further taper or if appropriate to continue Effexor XR for anxiety. Patient is extremely med focussed and currently tapering multiple meds in attempt to limit polypharmacy. Effexor XR is specifically to minimize discontinuation syndrome as Pristiq is non- formulary. Trazodone 200 mg this hs. (2) ADHD 01/21 - Will hold ADHD meds for now in view of impaired sleep and increased anxiety 01/22 - Continue off of stimulants 01/23--Vyvanse 60-70 mg is likely an appropriate dose given her college schedule and hx of concussion. Sleep issues more likely to use of caffeine which she is currently minimizing. Reviewed that Wellbutrin is also helpful but I wouldn't suggest doses over 300 mg given risk of seizure. Reviewed that she may be seeking to function at a hypomanic state. (3) Borderline personality disorder 01/21 - Will need to obtain outpatient records as to this diagnosis - Will need to be consistent in our interactions (4) PTSD (post-traumatic stress disorder) - status post events occurring at [place] last year - Consider trial prazosin if SBP improves - Will continue Klonopin 2 mg at bedtime to promote sleep for now but would like to see her tapered off benzodiazepines - Continue when necessary Vistaril 01/23--still minimizing need for outpatient therapy. Buspar trial prn anxiety. Discharge / Aftercare Planning Primary Care Physician: Name: None Psychiatrist: Name: [facility] Appointment Notes: referral made Therapist: Name: [facility] Coordinator Cardiopulmonary Services: Name: None Visit Code E&M Code: 12578 Inventory Assets Strengths: Intelligence, willingness to engage in treatment Needs: To take medications only as prescribed Risk Factors Assessment : Yes /single/: Yes Higher / Fall in social status: Yes Health problems: No Mental Health Diagnoses: Yes Substance use disorders: No Previous attempt: No Previous psychiatric stay: Yes Hopelessness: No Smoker: No Protective Factors Assessment : No Responsible for young children: No Employed: No Supportive family: Yes Data Meds Administered Last 24 Hrs: Meds Administered (Past 24Hrs) Medications (Trade) Dose Ordered Sig/Amy Route Start Time Stop Time Status Last Admin Dose Admin Eszopiclone (Lunesta Tab) 1 mg HSZ PO 01/22/17 22:00 01/23/17 11:36 DC 01/22/17 21:19 1 MG Ibuprofen (Motrin Tab) 800 mg TID PRN PO 01/22/17 14:15 02/21/17 14:14 01/23/17 13:19 800 MG Clonazepam (Klonopin Tab) 1 mg HS PO 01/23/17 22:00 01/25/17 21:59 01/23/17 21:27 1 MG Gabapentin (Neurontin Tab) 600 mg TID PO 01/23/17 14:00 01/24/17 12:14 DC 01/24/17 10:26 600 MG Amphetamine Aspartate/ Amphetam Sulf (Amphetamine Aspartate/Amphe Sulf/Dextramphet) 20 mg QAM PO 01/23/17 11:30 02/06/17 11:29 01/24/17 10:29 20 MG Buspirone HCl (Buspar Tab) 10 mg TID PRN PO 01/23/17 11:30 02/22/17 11:29 01/23/17 22:38 10 MG Sumatriptan Succinate (Imitrex Tab) 25 mg ONE PRN PO 01/23/17 11:30 02/22/17 11:29 01/23/17 17:30 25 MG Trazodone HCl (Desyrel Tab) 100 mg HS PO 01/23/17 22:00 01/24/17 12:14 DC 01/23/17 21:24 100 MG Trazodone HCl (Desyrel Tab) 100 mg HS PRN PO 01/23/17 11:30 02/22/17 11:29 01/23/17 22:38 100 MG Promethazine HCl (Phenergan Tab) 25 mg Q6H PRN PO 01/23/17 19:00 02/22/17 18:59 01/23/17 19:32 25 MG Chlorpromazine HCl (Thorazine Tab) 50 mg TODAY@0100 PO 01/24/17 01:00 01/24/17 02:30 DC 01/24/17 01:55 50 MG
[2017-01-24] MEDS ORDERED: CHLORPROMAZINE HCL 25 MG TAB PO PRN (12:30)
[2017-01-24] MEDS: hydrOXYzine HCL 25 MG TAB PO PRN (14:00)
[2017-01-24] MEDS: SUMATRIPTAN SUCCINATE 25 MG TAB PO PRN ×2 (15:41→20:00)
[2017-01-24] MEDS: PROMETHAZINE HCL 25 MG TAB PO PRN (15:41)
[2017-01-24 17:08] VITALS: BP 122/84; PULSE 75
[2017-01-24] MEDS: GABAPENTIN 300 MG CAP PO SCH (17:59)
[2017-01-24] MEDS: CLONAZEPAM 1 MG TAB PO SCH (21:28)
[2017-01-24] MEDS ORDERED: TRAZODONE HCL 100 MG TAB PO SCH (22:00)
[2017-01-24] MEDS: TRAZODONE HCL 100 MG TAB PO PRN (23:10)
[2017-01-25 07:01] VITALS: BP_SYST 84; BP_SYST 94; BP_DIAS 51; BP_DIAS 55; PULSE 61; PULSE 80; TEMP 36.4
[2017-01-25] MEDS: AMPHETAMINE ASP/SULF/DEXTRAMPH ER 20 MG CAP PO SCH (08:27)
[2017-01-25] MEDS: ARIPIprazole TAB 15 MG TAB PO SCH (08:27)
[2017-01-25] MEDS: BuPROPion XL 300 MG TABCR PO SCH (08:28)
[2017-01-25] MEDS: SUMATRIPTAN SUCCINATE 25 MG TAB PO PRN ×2 (12:32→18:10)
--- NOTE | 2017-01-25 14:35 | Psychiatric Progress Notes ---
Progress Note Date of Service Jan 25, 2017. Interval History On admit: 21-year-old [employer] [facility] student admitted to our unit with worsening depression, suicidality. She has changed her medicines by herself to include increasing her stimulant and her benzodiazepines. She is on quite an array of medications and it's easy to see how each medicine may have been added individually but at this point she is experiencing polypharmacy and may be medicating side effects from one medication with another. She denied manic symptoms. [place] was discontinued. She has been helped by Lamictal in the past when it was at higher doses and so we will increase his to 250 mg. Pristiq was also discontinued and Vyvanse was held on admission (it is also non- formulary). Benzodiazepine taper was also initiated by NATHALIA given hx of self- medication/overuse. Chief Complaint "Well I'm not sleeping, and my panic attacks are getting worse". Subjective Patient was seen & assessed interval progress reviewed with the treatment team. Staff report she requested multiple when necessary medications for sleep, so got gabapentin, trazodone (300 mg), clonazepam, and chlorpromazine all at bedtime last night. She was restarted on Adderall XR over the weekend. Yesterday evening, she picked at her fingers until they were bleeding, and reported high anxiety. When staff encouraged her to work on behavioral techniques for managing anxiety, she said "none of those things help, they usually takes Xanax," and asked them to call the doctor to get additional medication. She requested Imitrex for migraine and buspirone for anxiety today. She is attending groups, but is quiet, and states that she is "apprehensive, indifferent, and apathetic." Today, the patient states she is not sleeping, although staff report she slept 7.25 hours last night. She wants to know why she can't get more medication, "I used to be on Xanax and Effexor, I 'm just someone who needs a lot of meds." She says she is having panic with SOB , heart racing, and racing thoughts about twice a day, lasting 30 minutes. Prior to admission, she was having them once daily. She says "nothing wholistic seems to help," and wants more medication, "Xanax and Ativan really work well, but I don't have them here." She says she's tried "deep breathing, guided imagery, they don't work." She repeatedly asks for "stronger medications," and then says she "has to leave by tomorrow morning, I have a lecture." Sleep Information Total Hours of Sleep: 7.25 Meal Information Percent of Breakfast Consumed: 100 Percent of Lunch Consumed: 100 Percent of Dinner Consumed: 100 Mental Status Exam During interview pt is: alert and oriented, cooperative Appearance: appropriately dressed, disheveled Eye contact is: fair Motor behavior is: no abnormal motor movements Speech: normal in rate, rhythm & volume Affect: blunted, anxious Mood is: depressed, anxious Thought process: goal directed Thought content: reality based without delusions Suicidal thought are: denied Homicidal thoughts are: denied Hallucinations: denies auditory, denies visual Cognition: memory grossly intact, attention grossly intact, language grossly intact Intelligence estimated to be: average Insight: impaired Judgement: impaired Summary of Past History 01/[address] Garcia's records. Last seen on 11/05/16 prior to moving to [facility]. At that time her mood was improving on Abilify 15 mg. but room to improve and so he increased it to 30 mg. She requested to go back on vyvanse 30 mg. which she had been off of since March 2016 and so he gave her 3 scripts for Vyvanse 30 mg. #30. Diagnoses include [place], Bipolar disorder other, panic disorder without agoraphobia and insomnia. Meds were Xanax 2 mg. 1/2-1 pill TID prn, vyvanse 30 mg. daily, Abilify 30 mg. daily, Wellbutrin XL 450 mg. daily, gabapentin 900 mg. TID. Impression She is experiencing migraine from combo of stimulant and caffeine withdrawal. Patient reports worsening of inattentive symptoms following her concussion and functioned best on high dose of Wellbutrin in combo with stimulant. She admits she shouldn't be taking medications other than prescribed, but shows poor insight and continues to ask for "stronger meds." Impulsivity seems consistent with personality structure and ADHD as no evidence of terri. Patient has tendency to over-report many symptoms and remains unrealistic about medication regimen and need for therapy. Plan (1) Major depressive disorder, recurrent severe without psychotic features 01/21 -Current psychiatrist has diagnosed her with bipolar 2 however I do not find sufficient evidence to agree with this. -Will DC lithium in view of no effect over the course of months - Will continue Lamictal but increase to 250 mg as she said her mood was more stable on higher doses -We'll DC Pristiq in view of the fact she has been on it for 3 years at super therapeutic doses without benefit We will continue Wellbutrin XL 300 mg daily for now in view of reports of depression - We will also continue Abilify 30 mg daily for now as she feels it has been helpful - We will hold stimulants in view of her impaired sleep and increased anxiety - We will discontinue Xanax but continue Klonopin 2 mg HS for sleep while we consider her ability to trial prazosin - Every 15 minute checks for safety - Encourage participation in group and individual counseling - Obtain outpatient records from current providers - The patient will need psychiatric aftercare - Family meeting if indicated - Communicate with the university as needed 01/22 - Retrial Lunesta 1 mg. HS for sleep - Continue current meds for now. - FLP and FBS for monitoring on atypicals 01/23--d/c Lunesta, agrees to retrial of trazodone (previously effective at 250 mg). She is agreeable to decrease polypharmacy by tapering down on Neurontin and continuing benzo taper. 01/24--last dose of Klonopin 1 mg tonight, primary team to determine need for further taper tomorrow. Will provide 1 time dose of mid range dose of Effexor XR 112.5 mg, will defer to primary team re: further taper or if appropriate to continue Effexor XR for anxiety. Patient is extremely med focussed and currently tapering multiple meds in attempt to limit polypharmacy. Effexor XR is specifically to minimize discontinuation syndrome as Pristiq is non- formulary. Trazodone 200 mg this hs. 01/25--Reviewed all meds with patient as she is requesting more and stronger medications. Ultimately agreed to increase buspirone to 10mg tid, to schedule chlorpromazine 50mg and trazodone 300mg qhs (which she received last night, and denies she had AM sedation), and will continue others as needed (2) ADHD 01/21 - Will hold ADHD meds for now in view of impaired sleep and increased anxiety 01/22 - Continue off of stimulants 01/23--Vyvanse 60-70 mg is likely an appropriate dose given her college schedule and hx of concussion. Sleep issues more likely to use of caffeine which she is currently minimizing. Reviewed that Wellbutrin is also helpful but I wouldn't suggest doses over 300 mg given risk of seizure. Reviewed that she may be seeking to function at a hypomanic state. (3) Borderline personality disorder 01/21 - Will need to obtain outpatient records as to this diagnosis - Will need to be consistent in our interactions (4) PTSD (post-traumatic stress disorder) - status post events occurring at [place] last year - Consider trial prazosin if SBP improves - Will continue Klonopin 2 mg at bedtime to promote sleep for now but would like to see her tapered off benzodiazepines - Continue when necessary Vistaril 01/23--still minimizing need for outpatient therapy. Buspar trial prn anxiety. Discharge / Aftercare Planning Primary Care Physician: Name: None Psychiatrist: Name: [facility] Appointment Notes: referral made Therapist: Name: [facility] [employer] Technician: Name: None Visit Code E&M Code: 75713 Inventory Assets Strengths: Intelligence, willingness to engage in treatment Needs: To take medications only as prescribed Risk Factors Assessment : Yes /single/: Yes Higher / Fall in social status: Yes Health problems: No Mental Health Diagnoses: Yes Substance use disorders: No Previous attempt: No Previous psychiatric stay: Yes Hopelessness: No Smoker: No Protective Factors Assessment : No Responsible for young children: No Employed: No Supportive family: Yes Data Vital Signs Last 24 Hrs: Date Time Temp Pulse Resp B/P (MAP) Pulse Ox O2 Delivery O2 Flow Rate FiO2 01/25/17 07:01 36.4 61 16 94/55 80 84/51 01/24/17 17:08 75 16 122/84 Meds Administered Last 24 Hrs: Meds Administered (Past 24Hrs) Medications (Trade) Dose Ordered Sig/Amy Route Start Time Stop Time Status Last Admin Dose Admin Clonazepam (Klonopin Tab) 1 mg HS PO 01/23/17 22:00 01/25/17 21:59 01/24/17 21:28 1 MG Trazodone HCl (Desyrel Tab) 100 mg HS PO 01/23/17 22:00 01/24/17 12:14 DC 01/23/17 21:24 100 MG Promethazine HCl (Phenergan Tab) 25 mg Q6H PRN PO 01/23/17 19:00 02/22/17 18:59 01/24/17 15:41 25 MG Chlorpromazine HCl (Thorazine Tab) 50 mg TODAY@0100 PO 01/24/17 01:00 01/24/17 02:30 DC 01/24/17 01:55 50 MG Gabapentin (Neurontin Cap) 900 mg HS PO 01/24/17 22:00 02/19/17 20:59 01/24/17 17:59 900 MG Trazodone HCl (Desyrel Tab) 200 mg HS PO 01/24/17 22:00 02/22/17 21:59 01/24/17 21:26 200 MG Venlafaxine HCl (effeXOR EXTENDED REL CAP) 112.5 mg ONE ONCE PO 01/24/17 12:15 01/24/17 12:33 DC 01/24/17 13:12 112.5 MG Chlorpromazine HCl (Thorazine Tab) 50 mg HS PRN PO 01/24/17 12:30 02/23/17 12:29 01/24/17 22:09 50 MG
[2017-01-25] MEDS ORDERED: CHLORPROMAZINE HCL 25 MG TAB PO PRN (14:45)
[2017-01-25] MEDS: hydrOXYzine HCL 25 MG TAB PO PRN (19:38)
[2017-01-25] MEDS: GABAPENTIN 300 MG CAP PO SCH (21:32)
[2017-01-25] MEDS ORDERED: TRAZODONE HCL 100 MG TAB PO SCH (22:00)
[2017-01-26 06:48] VITALS: BP_SYST 101; BP_SYST 105; BP_DIAS 61; BP_DIAS 70; PULSE 67; TEMP 36.3
[2017-01-26] MEDS: ARIPIprazole TAB 15 MG TAB PO SCH (08:31)
[2017-01-26] MEDS: BuPROPion XL 300 MG TABCR PO SCH (08:31)
[2017-01-26] MEDS: AMPHETAMINE ASP/SULF/DEXTRAMPH ER 20 MG CAP PO SCH (08:32)
--- NOTE | 2017-01-26 09:53 | Psychiatric Progress Notes ---
Progress Note Date of Service Jan 26, 2017. Interval History On admit: 21-year-old [employer] [facility] student admitted to our unit with worsening depression, suicidality. She has changed her medicines by herself to include increasing her stimulant and her benzodiazepines. She is on quite an array of medications and it's easy to see how each medicine may have been added individually but at this point she is experiencing polypharmacy and may be medicating side effects from one medication with another. She denied manic symptoms. [place] was discontinued. She has been helped by Lamictal in the past when it was at higher doses and so we will increase his to 250 mg. Pristiq was also discontinued and Vyvanse was held on admission (it is also non- formulary). Benzodiazepine taper was also initiated by NATHALIA given hx of self- medication/overuse. Chief Complaint "I'm tired. ". Subjective Patient was seen & assessed interval progress reviewed with Treatment Team. Elsa says that she is tired this AM, and reports that she didn't sleep. She says that she kept waking up, with at least one night terror about gun violence. She reviews her stress when at [employer]. 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 She says that she did not realize that it would be an unpopular opinion when she started to receive threatening communications including threats, suggestions to kill herself. I discuss with her my concerns about her ability to find success at a new university right now given her mental health struggles, but she insists that her parents would not want her to move to a university closer to home because they are both [employer] alums and want her to get her degree here. She believes that if she gets the right meds she'll be fine. She admits that she has no supports, and lives with 2 roommates that she just met and never sees. She describes her mood today initially as "fine" and then "sad". She continues to report high anxiety and says when she lays down at night to sleep, her thoughts and heart race. She again is asking for more meds today. Review of Systems Constitutional: + fatigue ENT: No hearing loss, No unusual epistaxis, No nasal symptoms, No sore throat, No tinnitus, No dental problems, No trouble swallowing, No problem reported Respiratory: No cough, No sputum, No wheezing, No shortness of breath, No dyspnea on exertion, No dyspnea at rest, No hemoptysis, No problem reported Cardiovascular: + problem reported (elevated heart rate with anxiety) Abdomen: No pain, No nausea, No vomiting, No diarrhea, No constipation, No GI bleeding, No problem reported Musculoskeletal: No joint pain, No muscle pain, No swelling, No calf pain, No problem reported Neurologic: No memory loss, No paralysis, No weakness, No numbness/tingling, No vertigo, No balance problems, No problem reported Psychiatric: + depression symptoms, + anxiety, + insomnia Integumentary: No rash, No itch, No new/changing skin lesions, No color change , No bleeding, No problem reported Sleep Information Total Hours of Sleep: 5.00 Meal Information Percent of Breakfast Consumed: 100 Percent of Lunch Consumed: 100 Percent of Dinner Consumed: 0 Mental Status Exam During interview pt is: alert and oriented, cooperative Appearance: appropriately dressed, disheveled Eye contact is: fair (falling asleep at times) Motor behavior is: no abnormal motor movements, psychomotor retardation Speech: other (slow, monotoned) Affect: flat, other (slack jawed, vacant) Mood is: depressed, anxious Thought process: goal directed Thought content: reality based without delusions Suicidal thought are: denied Homicidal thoughts are: denied Hallucinations: denies auditory, denies visual Cognition: memory grossly intact, attention grossly intact, language grossly intact Intelligence estimated to be: average Insight: impaired Judgement: impaired Summary of Past History 01/[address] Garcia's records. Last seen on 11/05/16 prior to moving to [facility]. At that time her mood was improving on Abilify 15 mg. but room to improve and so he increased it to 30 mg. She requested to go back on vyvanse 30 mg. which she had been off of since March 2016 and so he gave her 3 scripts for Vyvanse 30 mg. #30. Diagnoses include [place], Bipolar disorder other, panic disorder without agoraphobia and insomnia. Meds were Xanax 2 mg. 1/2-1 pill TID prn, vyvanse 30 mg. daily, Abilify 30 mg. daily, Wellbutrin XL 450 mg. daily, gabapentin 900 mg. TID. Impression The patient remains med focused, seeing that meds are the flores to her success. Restarting stimulants has made little difference to her daytime appearance, as she is still slowed, vacant in appearance and anxious. Her self perceptions of sleep are that she doesn't sleep at all, but nursing during their observations, say that she got 5 hours last night, likely broken, despite taking Trazodone 300 mg., Thorazine 100 mg. and gabapentin 900 mg. She is single minded about getting meds and there is high concern that she will call Dr. Pinon in [place] after discharge to get those meds and so have placed a call and request for call back just to keep him informed in that event. Today will increase Buspar to 15 mg. TID and move HS meds to 1999 in an attempt to reduce AM sedation. Plan (1) Major depressive disorder, recurrent severe without psychotic features 01/21 -Current psychiatrist has diagnosed her with bipolar 2 however I do not find sufficient evidence to agree with this. -Will DC lithium in view of no effect over the course of months - Will continue Lamictal but increase to 250 mg as she said her mood was more stable on higher doses -We'll DC Pristiq in view of the fact she has been on it for 3 years at super therapeutic doses without benefit We will continue Wellbutrin XL 300 mg daily for now in view of reports of depression - We will also continue Abilify 30 mg daily for now as she feels it has been helpful - We will hold stimulants in view of her impaired sleep and increased anxiety - We will discontinue Xanax but continue Klonopin 2 mg HS for sleep while we consider her ability to trial prazosin - Every 15 minute checks for safety - Encourage participation in group and individual counseling - Obtain outpatient records from current providers - The patient will need psychiatric aftercare - Family meeting if indicated - Communicate with the university as needed 01/22 - Retrial Lunesta 1 mg. HS for sleep - Continue current meds for now. - FLP and FBS for monitoring on atypicals 01/23--d/c Lunesta, agrees to retrial of trazodone (previously effective at 250 mg). She is agreeable to decrease polypharmacy by tapering down on Neurontin and continuing benzo taper. 01/24--last dose of Klonopin 1 mg tonight, primary team to determine need for further taper tomorrow. Will provide 1 time dose of mid range dose of Effexor XR 112.5 mg, will defer to primary team re: further taper or if appropriate to continue Effexor XR for anxiety. Patient is extremely med focussed and currently tapering multiple meds in attempt to limit polypharmacy. Effexor XR is specifically to minimize discontinuation syndrome as Pristiq is non- formulary. Trazodone 200 mg this hs. 01/25--Reviewed all meds with patient as she is requesting more and stronger medications. Ultimately agreed to increase buspirone to 10mg tid, to schedule chlorpromazine 50mg and trazodone 300mg qhs (which she received last night, and denies she had AM sedation), and will continue others as needed 01/26 - Increase Buspar to 15 mg. TID - Move HS meds to 1999 to reduce AM sedation. - Patient not willing to consider moving home to [place] to pursue school (2) ADHD 01/21 - Will hold ADHD meds for now in view of impaired sleep and increased anxiety 01/22 - Continue off of stimulants 01/23--Vyvanse 60-70 mg is likely an appropriate dose given her college schedule and hx of concussion. Sleep issues more likely to use of caffeine which she is currently minimizing. Reviewed that Wellbutrin is also helpful but I wouldn't suggest doses over 300 mg given risk of seizure. Reviewed that she may be seeking to function at a hypomanic state. (3) Borderline personality disorder 01/21 - Will need to obtain outpatient records as to this diagnosis - Will need to be consistent in our interactions (4) PTSD (post-traumatic stress disorder) - status post events occurring at [place] last year - Consider trial prazosin if SBP improves - Will continue Klonopin 2 mg at bedtime to promote sleep for now but would like to see her tapered off benzodiazepines - Continue when necessary Vistaril 01/23--still minimizing need for outpatient therapy. Buspar trial prn anxiety. Discharge / Aftercare Planning Primary Care Physician: Name: None Psychiatrist: Name: [facility] Appointment Notes: referral made Therapist: Name: [facility] [employer]: Name: None Visit Code E&M Code: 76155 Inventory Assets Strengths: Intelligence, willingness to engage in treatment Needs: To take medications only as prescribed Risk Factors Assessment : Yes /single/: Yes Higher / Fall in social status: Yes Health problems: No Mental Health Diagnoses: Yes Substance use disorders: No Previous attempt: No Previous psychiatric stay: Yes Hopelessness: No Smoker: No Protective Factors Assessment : No Responsible for young children: No Employed: No Supportive family: Yes Data Vital Signs Last 24 Hrs: Date Time Temp Pulse Resp B/P (MAP) Pulse Ox O2 Delivery O2 Flow Rate FiO2 01/26/17 06:48 36.3 67 16 105/70 101/61 Meds Administered Last 24 Hrs: Meds Administered (Past 24Hrs) Medications (Trade) Dose Ordered Sig/Amy Route Start Time Stop Time Status Last Admin Dose Admin Gabapentin (Neurontin Cap) 900 mg HS PO 01/24/17 22:00 02/19/17 20:59 01/25/17 21:32 900 MG Trazodone HCl (Desyrel Tab) 200 mg HS PO 01/24/17 22:00 01/25/17 14:34 DC 01/24/17 21:26 200 MG Venlafaxine HCl (effeXOR EXTENDED REL CAP) 112.5 mg ONE ONCE PO 01/24/17 12:15 01/24/17 12:33 DC 01/24/17 13:12 112.5 MG Chlorpromazine HCl (Thorazine Tab) 50 mg HS PRN PO 01/24/17 12:30 01/25/17 14:31 DC 01/24/17 22:09 50 MG Chlorpromazine HCl (Thorazine Tab) 50 mg HS PRN PO 01/25/17 14:45 02/23/17 12:29 01/25/17 22:23 50 MG Trazodone HCl (Desyrel Tab) 300 mg HS PO 01/25/17 22:00 02/22/17 21:59 01/25/17 21:32 300 MG Buspirone HCl (Buspar Tab) 10 mg TID@0600,1200,1800 PO 01/25/17 18:00 02/24/17 17:59 01/26/17 06:31 10 MG Lab Results Last 24 Hrs: 01/20/17 13:30 Red Blood Count 4.79, Mean Corpuscular Volume 85.2, Mean Corpuscular Hemoglobin 29.4, Mean Corpuscular Hemoglobin Concent 34.6, Mean Platelet Volume 9.0, Neutrophils (%) (Auto) 61.7, Lymphocytes (%) (Auto) 29.7, Monocytes (%) (Auto) 6.8, Eosinophils (%) (Auto) 1.6, Basophils (%) (Auto) 0.1, Neutrophils # (Auto) 4.71, Lymphocytes # (Auto) 2.27, Monocytes # (Auto) 0.52, Eosinophils # (Auto) 0.12, Basophils # (Auto) 0.01 01/20/17 13:30 01/23/17 08:30 Test 01/20/17 00:00 01/20/17 13:30 01/20/17 13:31 01/20/17 16:43 Urine Color YELLOW Urine Appearance CLEAR (CLEAR) Urine pH 8.0 (4.5-7.5) Urine Specific [place] 1.013 (1.000-1.030) Urine Protein NEG (NEG) Urine Glucose (UA) NEG (NEG) Urine Ketones NEG (NEG) Urine Occult Blood 2+ (NEG) Urine Nitrite NEG (NEG) Urine Bilirubin NEG (NEG) Urine Urobilinogen NEG (NEG) Urine Leukocyte Esterase TRACE (NEG) Urine WBC (Auto) 0 /hpf (0-5) Urine RBC (Auto) 0-4 /hpf (0-4) Urine Hyaline Casts (Auto) 0 /lpf (0-5) Urine Epithelial Cells (Auto) 5-10 /lpf (0-5) Urine Bacteria (Auto) NEG (NEG) Urine Opiates Screen NEG (NEG) Urine Methadone, Qualitative NEG (NEG) Urine Barbiturates NEG (NEG) Urine Phencyclidine (PCP) Level NEG (NEG) Ur Amphetamine/Methamphetamine NEG (NEG) MDMA (Ecstasy) Screen NEG (NEG) Urine Hydroxyalprazolam Confirm 89 NG/ML (CUTOFF=25) Urine Benzodiazepines Screen POS (NEG) 7-[place]mino Clonazepam Level 274 NG/ML (CUTOFF=25) Urine Nordiazepam Confirmation NEGATIVE NG/ML (CUTOFF=50) Urine Hydroxyethylflurazepam Level NEGATIVE NG/ML (CUTOFF=50) Urine Lorazepam (GC/MS) NEGATIVE NG/ML (CUTOFF=50) Urine Oxazepam Confirm (GC/MS) NEGATIVE NG/ML (CUTOFF=50) Urine Temazepam Confirmation NEGATIVE NG/ML (CUTOFF=50) Urine Hydroxytriazolam Confirmation NEGATIVE NG/ML (CUTOFF=50) Urine Hydroxymidazolam Confirmation NEGATIVE NG/ML (CUTOFF=50) Urine Cocaine Metabolite NEG (NEG) Urine Marijuana (THC) NEG (NEG) White Blood Count 7.64 K/uL (4.8-10.8) Red Blood Count 4.79 M/uL (4.2-5.4) Hemoglobin 14.1 g/dL (12.0-16.0) Hematocrit 40.8 % (37-47) Mean Corpuscular Volume 85.2 fL (80-100) Mean Corpuscular Hemoglobin 29.4 pg (25-34) Mean Corpuscular Hemoglobin Concent 34.6 g/dl (32-36) Platelet Count 206 K/uL (130-400) Mean Platelet Volume 9.0 fL (7.4-10.4) Neutrophils (%) (Auto) 61.7 % Lymphocytes (%) (Auto) 29.7 % Monocytes (%) (Auto) 6.8 % Eosinophils (%) (Auto) 1.6 % Basophils (%) (Auto) 0.1 % Neutrophils # (Auto) 4.71 K/uL (1.4-6.5) Lymphocytes # (Auto) 2.27 K/uL (1.2-3.4) Monocytes # (Auto) 0.52 K/uL (0.11-0.59) Eosinophils # (Auto) 0.12 K/uL (0-0.5) Basophils # (Auto) 0.01 K/uL (0-0.2) RDW Standard Deviation 38.5 fL (36.4-46.3) RDW Coefficient of Variation 12.5 % (11.5-14.5) Immature Granulocyte % (Auto) 0.1 % Immature Granulocyte # (Auto) 0.01 K/uL (0.00-0.02) Anion Gap 6.0 mmol/L (3-11) Est Creatinine Clear Calc Drug Dose 94.0 ml/min Estimated GFR () 78.2 Estimated GFR (Non- 67.5 BUN/Creatinine Ratio 13.7 (10-20) Calcium Level 9.2 mg/dl (8.5-10.1) Total Bilirubin 0.5 mg/dl (0.2-1) Direct Bilirubin 0.1 mg/dl (0-0.2) Aspartate Amino Transf (AST/SGOT) 21 U/L (15-37) Alanine Aminotransferase (ALT/SGPT) 40 U/L (12-78) Alkaline Phosphatase 91 U/L (45-117) Total Protein 7.6 gm/dl (6.4-8.2) Albumin 4.2 gm/dl (3.4-5.0) Thyroid Stimulating Hormone (TSH) 1.360 uIu/ml (0.300-4.500) Human Chorionic Gonadotropin, Qual NEG (NEG) Ethyl Alcohol mg/dL < 3.0 mg/dl (0-3) Bedside Glucose 99 mg/dl (70-90) [place] Level 0.6 mMOL/L (0.6-1.2) Test 01/23/17 08:30 Fasting Glucose 89 mg/dl (70-99) Triglycerides Level 68 mg/dl (0-150) Cholesterol Level 125 mg/dl (0-200) HDL Cholesterol 47 mg/dl LDL Cholesterol, Calculated 64 mg/dl VLDL Cholesterol, Calculated 14 mg/dl Cholesterol/HDL Ratio 2.7
[2017-01-26] MEDS ORDERED: NURSING VERBAL MED ORDER ONE ×2 (10:00→20:15)
[2017-01-26] MEDS: hydrOXYzine HCL 25 MG TAB PO PRN (15:04)
[2017-01-26] MEDS: TRAZODONE HCL 100 MG TAB PO SCH (20:04)
[2017-01-26] MEDS: GABAPENTIN 300 MG CAP PO SCH (20:05)
[2017-01-26] MEDS: CHLORPROMAZINE HCL 25 MG TAB PO PRN (20:30)
[2017-01-27 07:08] VITALS: BP 107/69; PULSE 71; TEMP 36.3
[2017-01-27] MEDS: ARIPIprazole TAB 15 MG TAB PO SCH (08:45)
[2017-01-27] MEDS: BuPROPion XL 300 MG TABCR PO SCH (08:46)
[2017-01-27] MEDS: AMPHETAMINE ASP/SULF/DEXTRAMPH ER 20 MG CAP PO SCH (08:47)
--- NOTE | 2017-01-27 12:50 | Psychiatric Progress Notes ---
Progress Note Date of Service Jan 27, 2017. Interval History On admit: 21-year-old [employer] [facility] student admitted to our unit with worsening depression, suicidality. She has changed her medicines by herself to include increasing her stimulant and her benzodiazepines. She is on quite an array of medications and it's easy to see how each medicine may have been added individually but at this point she is experiencing polypharmacy and may be medicating side effects from one medication with another. She denied manic symptoms. [place] was discontinued. She has been helped by Lamictal in the past when it was at higher doses and so we will increase his to 250 mg. Pristiq was also discontinued and Vyvanse was held on admission (it is also non- formulary). Benzodiazepine taper was also initiated by NATHALIA given hx of self- medication/overuse. Chief Complaint "Well the good news is my anxiety's better". Subjective Patient was seen & assessed interval progress reviewed with treatment team. Staff report she continues to focus on medications and wanting higher doses. She continues to refuse a referral for OP therapy. Today she told staff she wanted to be seen immediately, and says she still feels very depressed and "I'm not ready to leave." She is upset that she might have to be discharged earlier than she'd like. She reports improved anxiety but depressed mood, and says she is worried about going home. She had night terrors last night and woke up several times, and thinks she was hallucinating that someone was in the room. Sleep Information Total Hours of Sleep: 7.25 Meal Information Percent of Breakfast Consumed: 100 Percent of Lunch Consumed: 100 Percent of Dinner Consumed: 80 Mental Status Exam During interview pt is: alert and oriented, cooperative Appearance: appropriately dressed, disheveled Eye contact is: fair Motor behavior is: psychomotor retardation Speech: other (slow, monotoned) Affect: flat, other (without affect, incongruent with stated mood is depressed) Mood is: depressed Thought process: goal directed (but focused on medications) Thought content: reality based without delusions Suicidal thought are: denied Homicidal thoughts are: denied Hallucinations: denies auditory, denies visual Cognition: memory grossly intact, attention grossly intact, language grossly intact Intelligence estimated to be: average Insight: impaired Judgement: impaired Summary of Past History 01/[address] Garcia's records. Last seen on 11/05/16 prior to moving to [facility]. At that time her mood was improving on Abilify 15 mg. but room to improve and so he increased it to 30 mg. She requested to go back on vyvanse 30 mg. which she had been off of since March 2016 and so he gave her 3 scripts for Vyvanse 30 mg. #30. Diagnoses include [place], Bipolar disorder other, panic disorder without agoraphobia and insomnia. Meds were Xanax 2 mg. 1/2-1 pill TID prn, vyvanse 30 mg. daily, Abilify 30 mg. daily, Wellbutrin XL 450 mg. daily, gabapentin 900 mg. TID. Impression The patient remains med focused, wanting higher doses of medications. Restarting stimulants has made little difference, as she is still slowed and lacking affect. She perceives that she doesn't sleep, but nursing staff observed that she is sleeping through the night. She remains on numerous sedating medications for sleep, including Trazodone 300 mg., Thorazine 100 mg. and gabapentin 900 mg. a message has been left for her outpatient psychiatrist in [place], Dr. Pinon, to coordinate care and informed them of her hospitalization and the medication changes and outpatient follow-up plan. Buspar has been added for anxiety and increased to 15 mg. TID, and HS meds moved to 1999 in an attempt to reduce AM sedation. Plan (1) Major depressive disorder, recurrent severe without psychotic features 01/21 - Current psychiatrist has diagnosed her with bipolar 2 however I do not find sufficient evidence to agree with this. - Will DC lithium in view of no effect over the course of months - Will continue Lamictal but increase to 250 mg as she said her mood was more stable on higher doses - We'll DC Pristiq in view of the fact she has been on it for 3 years at super therapeutic doses without benefit - We will continue Wellbutrin XL 300 mg daily for now in view of reports of depression - We will also continue Abilify 30 mg daily for now as she feels it has been helpful - We will hold stimulants in view of her impaired sleep and increased anxiety - We will discontinue Xanax but continue Klonopin 2 mg HS for sleep while we consider her ability to trial prazosin - Every 15 minute checks for safety - Encourage participation in group and individual counseling - Obtain outpatient records from current providers - The patient will need psychiatric aftercare - Family meeting if indicated - Communicate with the university as needed 01/22 - Retrial Lunesta 1 mg. HS for sleep - Continue current meds for now. - FLP and FBS for monitoring on atypicals 01/23--d/c Lunesta, agrees to retrial of trazodone (previously effective at 250 mg). She is agreeable to decrease polypharmacy by tapering down on Neurontin and continuing benzo taper. 01/24--last dose of Klonopin 1 mg tonight, primary team to determine need for further taper tomorrow. Will provide 1 time dose of mid range dose of Effexor XR 112.5 mg, will defer to primary team re: further taper or if appropriate to continue Effexor XR for anxiety. Patient is extremely med focussed and currently tapering multiple meds in attempt to limit polypharmacy. Effexor XR is specifically to minimize discontinuation syndrome as Pristiq is non- formulary. Trazodone 200 mg this hs. 01/25--Reviewed all meds with patient as she is requesting more and stronger medications. Ultimately agreed to increase buspirone to 10mg tid, to schedule chlorpromazine 50mg and trazodone 300mg qhs (which she received last night, and denies she had AM sedation), and will continue others as needed 01/26 - Increase Buspar to 15 mg. TID - Move HS meds to 1999 to reduce AM sedation. - Patient not willing to consider moving home to [place] to pursue school 01/27 - Continue buspirone 15mg tid, lamotrigine 250mg, gabapentin 900mg q8pm, and aripiprazole 30mg daily. - Patient is requesting to increase bupropion XL to 450mg daily, which she was on in the past and thought was helpful. She denies side effects to it. We still have not heard back from her OP psychiatrist Dr. Pinon, but it would be helpful to review her case with him. - Consider trial of prazosin for nightmares, but has been hypotensive here. (2) ADHD 01/21 - Will hold ADHD meds for now in view of impaired sleep and increased anxiety 01/22 - Continue off of stimulants 01/23--Vyvanse 60-70 mg is likely an appropriate dose given her college schedule and hx of concussion. Sleep issues more likely to use of caffeine which she is currently minimizing. Reviewed that Wellbutrin is also helpful but I wouldn't suggest doses over 300 mg given risk of seizure. Reviewed that she may be seeking to function at a hypomanic state. (3) Borderline personality disorder 01/21 - Will need to obtain outpatient records as to this diagnosis - Will need to be consistent in our interactions (4) PTSD (post-traumatic stress disorder) - status post events occurring at [place] last year - Consider trial prazosin if SBP improves - Will continue Klonopin 2 mg at bedtime to promote sleep for now but would like to see her tapered off benzodiazepines - Continue when necessary Vistaril 01/23--still minimizing need for outpatient therapy. Buspar trial prn anxiety. 01/27--After much discussion, patient willing for therapy referral. Discharge / Aftercare Planning Primary Care Physician: Name: [facility] Appointment Notes: As needed Psychiatrist: Name: Dr vAina [facility] [address] Date of Appointment: Feb 18, 2017 Time of Appointment: 3:00pm Appointment Notes: Bring photo ID and Insurance card. Therapist: Name: [facility] Refiner: Name: None Other: Name of Appointment #1: [facility] Appointment #1 Notes: [facility] Visit Code E&M Code: 26678 Inventory Assets Strengths: Intelligence, willingness to engage in treatment Needs: To take medications only as prescribed Risk Factors Assessment : Yes /single/: Yes Higher / Fall in social status: Yes Health problems: No Mental Health Diagnoses: Yes Substance use disorders: No Previous attempt: No Previous psychiatric stay: Yes Hopelessness: No Smoker: No Protective Factors Assessment : No Responsible for young children: No Employed: No Supportive family: Yes Data Vital Signs Last 24 Hrs: Date Time Temp Pulse Resp B/P (MAP) Pulse Ox O2 Delivery O2 Flow Rate FiO2 01/27/17 07:08 36.3 71 16 107/69 Meds Administered Last 24 Hrs: Meds Administered (Past 24Hrs) Medications (Trade) Dose Ordered Sig/Amy Route Start Time Stop Time Status Last Admin Dose Admin Chlorpromazine HCl (Thorazine Tab) 50 mg HS PRN PO 01/25/17 14:45 01/26/17 20:16 DC 01/25/17 22:23 50 MG Trazodone HCl (Desyrel Tab) 300 mg HS PO 01/25/17 22:00 01/26/17 09:56 DC 01/25/17 21:32 300 MG Buspirone HCl (Buspar Tab) 10 mg TID@0600,1200,1800 PO 01/25/17 18:00 01/26/17 09:56 DC 01/26/17 06:31 10 MG Trazodone HCl (Desyrel Tab) 300 mg DAILY@1999 PO 01/26/17 20:00 02/22/17 21:59 01/26/17 20:04 300 MG Buspirone HCl (Buspar Tab) 15 mg TID@0900,1200,1800 PO 01/26/17 12:00 02/25/17 11:59 01/27/17 12:23 15 MG Lamotrigine (Lamictal Tab) 250 mg DAILY@1999 PO 01/26/17 20:00 02/25/17 19:59 01/26/17 20:05 250 MG Gabapentin (Neurontin Cap) 900 mg DAILY@1999 PO 01/26/17 20:00 02/25/17 19:59 01/26/17 20:05 900 MG Chlorpromazine HCl (Thorazine Tab) 100 mg HS PRN PO 01/26/17 20:30 02/23/17 12:29 01/26/17 20:30 100 MG
[2017-01-27] MEDS: SUMATRIPTAN SUCCINATE 25 MG TAB PO PRN (12:59)
[2017-01-27] MEDS: CHLORPROMAZINE HCL 25 MG TAB PO PRN (20:12)
[2017-01-27] MEDS: GABAPENTIN 300 MG CAP PO SCH (20:12)
[2017-01-27] MEDS: TRAZODONE HCL 100 MG TAB PO SCH (20:13)
[2017-01-28 07:01] VITALS: BP_SYST 102; BP_SYST 111; BP_DIAS 65; BP_DIAS 71; PULSE 80; PULSE 84; TEMP 36.6
[2017-01-28] MEDS ORDERED: BuPROPion XL 150 MG TABCR PO SCH (09:00)
[2017-01-28] MEDS: BuPROPion XL 300 MG TABCR PO SCH (09:15)
[2017-01-28] MEDS: ARIPIprazole TAB 15 MG TAB PO SCH (09:15)
[2017-01-28] MEDS: AMPHETAMINE ASP/SULF/DEXTRAMPH ER 20 MG CAP PO SCH (09:15)
[2017-01-28] MEDS ORDERED: CHLO1TAB45 PO (10:13)
[2017-01-28] MEDS ORDERED: LMC25 PO (10:13)
[2017-01-28] MEDS ORDERED: TRAZ300T PO (10:13)
[2017-01-28] MEDS ORDERED: BSP5 PO (10:13)
[2017-01-28] MEDS ORDERED: WLLXL150 PO (10:13)
--- NOTE | 2017-01-28 10:25 | Discharge Instructions ---
Discharge Information Report Includes Report will include the: Discharge Instructions & Summary Admission Admission Date / Time: Jan 20, 2017 at 16:30 Reason for Admission: Depression, Suicide Attempt Discharge Discharge Diagnosis / Problem: Depression, anxiety Condition at Discharge: Fair Discharge Goals Goal(s): Decrease discomfort, Improve disease control Activity Recommendations Activity Limitations: resume your previous activity . Instructions / Follow-Up Instructions / Follow-Up . SPECIAL CARE INSTRUCTIONS: 1. Follow through with your scheduled aftercare appointments. If unable to keep an appointment, please call to reschedule. 2. Take your medication only as prescribed. Medication should not be changed or stopped without the approval of your doctor. In the event of worsening symptoms or concerns about side effects, contact your doctor immediately. 3. Utilize new healthy coping skills, anger management skills, and stress management skills learned during your hospitalization. Journal feelings and process them with a support person. Identify stressors or situations that may result in relapse, deterioration or inappropriate behaviors and develop a plan to deal with those issues. 4. If your coping skills are ineffective and you are in crisis, contact your outpatient providers for direction. If unable to reach your providers, please call the CAN HELP LINE AT or go to the closest Emergency Room. 5. Avoid alcohol and un-prescribed drugs. 6. You have been provided with the Mental Health Advance Directives Pamphlet for your review. AFTERCARE APPOINTMENTS: * Please call your insurance company prior to your scheduled appointment to confirm your aftercare providers are covered. Take your insurance information to your appointments. . Discharge / Aftercare Planning Primary Care Physician: Name: .[facility] Appointment Notes: As needed Psychiatrist: Name: Dr [facility] Date of Appointment: Feb 18, 2017 Time of Appointment: 3:00pm Appointment Notes: [address] [facility] [address] Therapist: Name Of Therapist: Julianne Moreno[facility] Date of Appointment: Feb 03, 2017 Time of Appointment: 10:00am Appointment Comments: Bring photo ID and Insurance card Dye Weigher Helper: Name: None Other: Name of Appointment #1: [facility] and [facility]ocacy Appointment #1 Notes: [address] [facility] . Follow-Up Care Plan for Follow-Up Care: Elsa will see Dr. Kirk Feb 18 Current Hospital Diet Patient's current hospital diet: Regular Diet Discharge Diet Recommended Diet: Regular Diet Procedures Procedures Performed: No Pending Studies Pending Studies at Discharge: No Medical Emergencies . Who to Call and When: Medical Emergencies: For questions or emergencies related to your hospital stay, please contact the Inpatient Behavioral Health Unit at [phone]. A wood preserving plant laborer is on-call 26/10 for the Behavioral Health Unit for emergencies At any time you feel your situation is an emergency, you may also call 911 immediately. . Non-Emergent Contact Non-Emergency issues call your: Psychiatrist, Therapist Past History Medical & Surgical History: (1) Concussion Advance Directives Existing Advance Directive: No Do You Have an Existing Mental: No Existing Living Will: No Existing Power of Corporate Real Estate Manager: No Advance Directives Info Given: To Pt/S.O. Advance Directives Reason: Declines as Mental Health Visit. 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 She says that she had no psychiatric problems until she had a concussion while playing basketball in 2013 and since then has had mood problems, specifically depression. She saw a Dr. Lisa Hidalgo at [facility] at the age of 19 who diagnosed her with ADHD and had psych testing. She has been trialed on Adderall, Ritalin and most recently on Vyvanse. She had been a student at 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 She says that she received threatening emails and letters and even threats. She developed night terrors and flashbacks related to these incidents and so decided to leave the university for [employer]. Since arriving at [employer] in November, she has not been able to find psych providers, and when her concentration was impaired, self increased her Vyvanse to 60 mg. about 1 month ago. She has continued to feel depressed, and in the last 2.5 weeks she has been having more trouble sleeping, getting only 2-3 hours per night. This lead her to self increase her BZD's taking Klonopin 4 mg. HS plus Xanax 2 mg. She says that when she can't concentrate it leads to anxiety, and has been having panic attacks about every other day and is taking an additional 2 mg. Xanax for those panic attacks. At some point in the last week, she became so distressed that she went to the top of a building with the intent to jump, but "chickened out". Yesterday when she was unable to find a psychiatrist who could see her promptly, she decided to come to the ED. Today she reports feeling depressed and anxious, but without acute SI. She endorses impaired sleep, "lethargic" energy, and poor concentration. Her appetite had been increased during a recent trial of Remeron, and gained 50 lb over l.5 mos.. She endorses feeling of paranoia occurring since the events at [facility] ie feeling she is being watched or followed. She denies aud/vis hallucinations. her night terrors are occurring nightly and flashbacks occur frequently, with no specific trigger. She denies self injurious behaviors. Her psychiatrist thought she had binge eating disorder, but she describes the quantity of food that she binged on was 2 bowls of granola. She denies ever having sustained manic symptoms, spending behaviors, grandiosity or pleasure seeking behaviors, but describes her manic episodes as times when she has a panic attack which leads her to crying for an hour or more until she gets "fed up" and then starts to cope with that by cleaning to excess and using distracting activities which lasts for about 2-3 hours. Hospital Course (1) Major depressive disorder, recurrent severe without psychotic features 01/21 - Current psychiatrist has diagnosed her with bipolar 2 however I do not find sufficient evidence to agree with this. - Will DC lithium in view of no effect over the course of months - Will continue Lamictal but increase to 250 mg as she said her mood was more stable on higher doses - We'll DC Pristiq in view of the fact she has been on it for 3 years at super therapeutic doses without benefit - We will continue Wellbutrin XL 300 mg daily for now in view of reports of depression - We will also continue Abilify 30 mg daily for now as she feels it has been helpful - We will hold stimulants in view of her impaired sleep and increased anxiety - We will discontinue Xanax but continue Klonopin 2 mg HS for sleep while we consider her ability to trial prazosin - Every 15 minute checks for safety - Encourage participation in group and individual counseling - Obtain outpatient records from current providers - The patient will need psychiatric aftercare - Family meeting if indicated - Communicate with the university as needed 01/22 - Retrial Lunesta 1 mg. HS for sleep - Continue current meds for now. - FLP and FBS for monitoring on atypicals 01/23--d/c Lunesta, agrees to retrial of trazodone (previously effective at 250 mg). She is agreeable to decrease polypharmacy by tapering down on Neurontin and continuing benzo taper. 01/24--last dose of Klonopin 1 mg tonight, primary team to determine need for further taper tomorrow. Will provide 1 time dose of mid range dose of Effexor XR 112.5 mg, will defer to primary team re: further taper or if appropriate to continue Effexor XR for anxiety. Patient is extremely med focussed and currently tapering multiple meds in attempt to limit polypharmacy. Effexor XR is specifically to minimize discontinuation syndrome as Pristiq is non- formulary. Trazodone 200 mg this hs. 01/25--Reviewed all meds with patient as she is requesting more and stronger medications. Ultimately agreed to increase buspirone to 10mg tid, to schedule chlorpromazine 50mg and trazodone 300mg qhs (which she received last night, and denies she had AM sedation), and will continue others as needed 01/26 - Increase Buspar to 15 mg. TID - Move HS meds to 1999 to reduce AM sedation. - Patient not willing to consider moving home to [place] to pursue school 01/27 - Continue buspirone 15mg tid, lamotrigine 250mg, gabapentin 900mg q8pm, and aripiprazole 30mg daily. - Patient is requesting to increase bupropion XL to 450mg daily, which she was on in the past and thought was helpful. She denies side effects to it. We still have not heard back from her OP psychiatrist Dr. Pinon, but it would be helpful to review her case with him. - Consider trial of prazosin for nightmares, but has been hypotensive here. (2) ADHD 01/21 - Will hold ADHD meds for now in view of impaired sleep and increased anxiety 01/22 - Continue off of stimulants 01/23--Vyvanse 60-70 mg is likely an appropriate dose given her college schedule and hx of concussion. Sleep issues more likely to use of caffeine which she is currently minimizing. Reviewed that Wellbutrin is also helpful but I wouldn't suggest doses over 300 mg given risk of seizure. Reviewed that she may be seeking to function at a hypomanic state. (3) Borderline personality disorder 01/21 - Will need to obtain outpatient records as to this diagnosis - Will need to be consistent in our interactions (4) PTSD (post-traumatic stress disorder) - status post events occurring at [employer] last year - Consider trial prazosin if SBP improves - Will continue Klonopin 2 mg at bedtime to promote sleep for now but would like to see her tapered off benzodiazepines - Continue when necessary Vistaril 01/23--still minimizing need for outpatient therapy. Buspar trial prn anxiety. 01/27--After much discussion, patient willing for therapy referral. Risk Factors Assessment : Yes /single/: Yes Higher / Fall in social status: Yes Health problems: No Mental Health Diagnoses: Yes Substance use disorders: No Previous attempt: No Previous psychiatric stay: Yes Hopelessness: No Smoker: No Protective Factors Assessment : No Responsible for young children: No Employed: No Supportive family: Yes Day of Discharge Assessment COURSE OF HOSPITALIZATION: The patient was on our unit for 8 days. She presented to the emergency department with reports of increased depression and increased anxiety, impaired sleep. She had previously been treated by a psychiatrist at home in [place] for generalized anxiety disorder, bipolar disorder, panic disorder with out Agoura phobia and insomnia. He apparently was also treating her for ADHD. She had been on by Jacob 30 mg daily but after coming to [employer] [facility] [employer] [facility] [employer] school in November started manipulating her own medications and double her dose from 30-60 and started taking 2 different benzodiazepines as well. She attempted to find psychiatric providers locally but was unable to do so and so presented to the emergency department in her distress not knowing what to do. She had been on a large number of medications that we attempted to streamline. She was on a supratherapeutic dose of Pristiq which we discontinued altogether in view of her bipolar disorder. She had been taking both Xanax and Klonopin. We discontinued Xanax immediately and eventually discontinued Klonopin as well. She was continued on Abilify 30 mg daily. She was on Wellbutrin XL which we increased from 300-450 to target mood , energy and her ADHD symptoms. He do not carry Vyvanse here and so Adderall was substituted. He obtained records from her last psychiatric provider but had also requested a call back which we did not receive. She had come to [employer] [facility] [employer] [facility] on transfer from [place] near [place]. 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 She has not been functioning well here in school but would not consider withdrawing from the semester and returning home. No sleep was her big concern and she was med focused throughout her stay. She claims she has use behavioral strategies that never worked and was focused on getting more and more medications. We eventually started Thorazine 100 mg at bedtime, and trazodone 300 mg at bedtime. Lamictal was increased to 250 mg and she was continued on gabapentin 900 mg 3 times a day. She has a history of having had a concussion in the past and this could certainly substantiate the need for stimulants. She presented as very affectively flat and vacant, psychomotorically slowed. After sleep improving for several nights, the patient decided she was ready to return to school. She wanted us to prescribe her 60 mg of Vyvanse which is what she had self increased her dose to. She had been given 3 one-month supplies of 30 mg daily from her psychiatrist in [place] and this dosage will be continued at discharge until she is able to see her outpatient provider, due to concerns for it agitating her anxiety, impairing her sleep and due to concerns that she was manipulating her own dose. Family meeting was held by phone with her mother who supported the patient staying in school in continuing in treatment. She denied any suicidal thinking throughout her stay. DAY OF DISCHARGE ASSESSMENT: Today the patient is requesting discharge. She feels that she slept well and that her medications are now right. She denies suicidal thinking or any evidence of thought disorder. She plans to return to school and has prompt follow-up with local providers. Today she is appropriately dressed but disheveled. Her hair is in complete disarray. Eye contact is good. Affect remains restricted although not as flat as previous days. Eye contact is good. Speech is of normal rate volume and tone. Thoughts are organized, goal-directed, without evidence of thought disorder. Recent and remote memory is intact per conversation. Intelligence is estimated to be average. Insight and judgment are improved over admission. Laboratory Test 01/20/17 00:00 01/20/17 13:30 01/20/17 13:31 01/20/17 16:43 Urine Color YELLOW Urine Appearance CLEAR Urine pH 8.0 Urine Specific [place] 1.013 Urine Protein NEG Urine Glucose (UA) NEG Urine Ketones NEG Urine Occult Blood 2+ Urine Nitrite NEG Urine Bilirubin NEG Urine Urobilinogen NEG Urine Leukocyte Esterase TRACE Urine WBC (Auto) 0 Urine RBC (Auto) 0-4 Urine Hyaline Casts (Auto) 0 Urine Epithelial Cells (Auto) 5-10 Urine Bacteria (Auto) NEG Urine Opiates Screen NEG Urine Methadone, Qualitative NEG Urine Barbiturates NEG Urine Phencyclidine (PCP) Level NEG Ur Amphetamine/Methamphetamine NEG MDMA (Ecstasy) Screen NEG Urine Hydroxyalprazolam Confirm 89 Urine Benzodiazepines Screen POS 7-Amino Clonazepam Level 274 Urine Nordiazepam Confirmation NEGATIVE Urine Hydroxyethylflurazepam Level NEGATIVE Urine Lorazepam (GC/MS) NEGATIVE Urine Oxazepam Confirm (GC/MS) NEGATIVE Urine Temazepam Confirmation NEGATIVE Urine Hydroxytriazolam Confirmation NEGATIVE Urine Hydroxymidazolam Confirmation NEGATIVE Urine Cocaine Metabolite NEG Urine Marijuana (THC) NEG White Blood Count 7.64 Red Blood Count 4.79 Hemoglobin 14.1 Hematocrit 40.8 Mean Corpuscular Volume 85.2 Mean Corpuscular Hemoglobin 29.4 Mean Corpuscular Hemoglobin Concent 34.6 Platelet Count 206 Mean Platelet Volume 9.0 Neutrophils (%) (Auto) 61.7 Lymphocytes (%) (Auto) 29.7 Monocytes (%) (Auto) 6.8 Eosinophils (%) (Auto) 1.6 Basophils (%) (Auto) 0.1 Neutrophils # (Auto) 4.71 Lymphocytes # (Auto) 2.27 Monocytes # (Auto) 0.52 Eosinophils # (Auto) 0.12 Basophils # (Auto) 0.01 RDW Standard Deviation 38.5 RDW Coefficient of Variation 12.5 Immature Granulocyte % (Auto) 0.1 Immature Granulocyte # (Auto) 0.01 Sodium Level 140 Potassium Level 3.3 Chloride Level 106 Carbon Dioxide Level 28 Anion Gap 6.0 Blood Urea Nitrogen 16 Creatinine 1.15 Est Creatinine Clear Calc Drug Dose 94.0 Estimated GFR () 78.2 Estimated GFR (Non- 67.5 BUN/Creatinine Ratio 13.7 Random Glucose 85 Calcium Level 9.2 Total Bilirubin 0.5 Direct Bilirubin 0.1 Aspartate Amino Transferase (AST) 21 Alanine Aminotransferase (ALT) 40 Alkaline Phosphatase 91 Total Protein 7.6 Albumin 4.2 Thyroid Stimulating Hormone (TSH) 1.360 Human Chorionic Gonadotropin, Qual NEG Ethyl Alcohol mg/dL < 3.0 POC Glucose 99 [place] Level 0.6 Test 01/23/17 08:30 Potassium Level 4.3 Fasting Glucose 89 Triglycerides Level 68 Cholesterol Level 125 HDL Cholesterol 47 LDL Cholesterol, Calculated 64 VLDL Cholesterol, Calculated 14 Cholesterol/HDL Ratio 2.7 Total Time Total Time Spent (min): Greater than 30 minutes Total Time Included: examination of the patient, discharge planning, medication reconciliation, communication with other providers Tobacco Cessation at Discharge Smoking Status: Never Smoker FDA approved Prescription: non-smoker
[2017-01-28] MEDS ORDERED: GABA-113 PO (11:17)
[2017-01-28] MEDS: SUMATRIPTAN SUCCINATE 25 MG TAB PO PRN (13:56)
[2017-01-28] MEDS ORDERED: CHLORPROMAZINE HCL 100 MG TAB PO SCH ×2 (22:00)
[2017-01-28] MEDS ORDERED: TRAZODONE HCL 100 MG TAB PO SCH ×2 (22:00)
== END 2017-01-28 14:38 | disposition home or self-care (01) | DRG 885 ==
LOC: C.EDB 12:53 → C.MHU 16:30 → ENRESERV 16:35 → C.MHU 01-21 11:21
PROVIDERS: ADMIT Psychiatry & Neurology Psychiatry; ATTEND Psychiatry & Neurology Psychiatry
DX: F33.2 Major depressive disorder, recurrent severe without psychotic features (principal); R45.851 Suicidal ideations; F90.9 Attention-deficit hyperactivity disorder, unspecified type; F43.10 Post-traumatic stress disorder, unspecified; F41.9 Anxiety disorder, unspecified; Z79.899 Other long term (current) drug therapy; Z82.49 Family history of ischemic heart disease and other diseases of the circulatory system; Z81.1 Family history of alcohol abuse and dependence